=== PATIENT | female | born 1945 | race Caucasian/White ===

== ENCOUNTER 2020-07-17 12:10 | Inpatient (IN) | payer OTHER ==
[2020-07-17] MEDS ORDERED: ONDANSETRON 4 MG/2 ML VIAL ONE (13:01)
[2020-07-17] MEDS ORDERED: MORPHINE 4 MG/ML SYR ONE ×3 (13:01→15:20)
--- NOTE | 2020-07-17 13:31 | RAD REPORT ---
EXAM DESCRIPTION: RAD - Hip Left 2 View - 07/17/2020 1:23 pm CLINICAL HISTORY: PAIN COMPARISON: <Comparisons> FINDINGS: Intratrochanteric fracture is seen of the proximal left femur. No dislocation evident.
--- NOTE | 2020-07-17 13:44 | RAD REPORT ---
EXAM DESCRIPTION: RAD - Chest Single View - 07/17/2020 1:28 pm CLINICAL HISTORY: CONGESTION Chest pain. COMPARISON: Hip Left 2 View dated 07/17/2020 FINDINGS: Portable technique limits examination quality. The lungs are grossly clear. The heart is normal in size. Old left clavicular trauma.Cervical hardwar e plate. IMPRESSION: No acute intrathoracic process suspected.
[2020-07-17 14:04] LABS: Absolute Lymphocytes (CBC) 1.7 K/uL (0.7-4.9); Basophils % 0.7 % (0-1.3); Hematocrit 40.3 % (36.0-45.0); Lymphocytes % 20.1 % (15.3-44.8); MPV 9.3 fL (7.6-11.3); RBC Red Blood Cell Count 4.28 M/uL (3.86-4.86)
[2020-07-17 14:10] LABS: Protime INR 1.02
--- NOTE | 2020-07-17 14:24 | EDPHYS ---
Physician Documentation [facility] Name: Zaid Travis Age: 75 yrs Sex: Female : 1945 Arrival Date: 07/17/2020 Time: 12:10 Bed 7 Private MD: ED Physician Janet Schwartz HPI: 07/17 14:20 This 75 yrs old Female presents to ER via EMS with complaints of Fall Injury. ma2 14:20 Details of fall: The patient fell from an upright position. Onset: The symptoms/episode ma2 began/occurred suddenly, 3 hour(s) ago. Severity of symptoms: At their worst the symptoms were. The patient has experienced similar episodes in the past. Historical: - Allergies: 12:15 Codeine; itching; hb - Home Meds: 12:15 gabapentin oral oral [Active]; Lexapro Oral [Active]; hb - PMHx: 12:15 Bipolar disorder; hb - Immunization history:: Adult Immunizations up to date. - Social history:: Smoking status: Patient reports the use of cigarette tobacco products, smokes one-half pack cigarettes per day. - Immunization history: Last tetanus immunization: < 5 years ago. - Family history:: not pertinent. ROS: 14:20 Constitutional: Negative for fever, chills, and weight loss. ma2 14:20 All other systems are negative. Exam: 14:20 Constitutional: This is a well developed, well nourished patient who is awake, alert, ma2 and in no acute distress. Chest/axilla: Normal chest wall appearance and motion. Nontender with no deformity. No lesions are appreciated. Cardiovascular: Regular rate and rhythm with a normal S1 and S2. No gallops, murmurs, or rubs. Normal PMI, no JVD. No pulse deficits. Respiratory: Lungs have equal breath sounds bilaterally, clear to auscultation and percussion. No rales, rhonchi or wheezes noted. No increased work of breathing, no retractions or nasal flaring. Abdomen/GI: Soft, non-tender, with normal bowel sounds. No distension or tympany. No guarding or rebound. No evidence of tenderness throughout. Skin: Warm, dry with normal turgor. Normal color with no rashes, no lesions, and no evidence of cellulitis. MS/ Extremity: Pulses equal, no cyanosis. Neurovascular intact. Full, normal range of motionleft. left hip ttp Neuro: Awake and alert, GCS 15, oriented to person, place, time, and situation. Cranial nerves II-XII grossly intact. Motor strength 5/5 in all extremities. Sensory grossly intact. Cerebellar exam normal. Normal gait. Vital Signs: 12:13 BP 170 / 86; Pulse 81; Resp 16; Temp 98.3; Pulse Ox 95% on R/A; Weight 54.43 kg; Height hb 5 ft. 7 in. (170.18 cm); Pain 9/10; 13:04 BP 151 / 64; Pulse 63; Resp 16; Pulse Ox 94% on R/A; Pain 9/10; hb 14:00 BP 155 / 76; Pulse 66; Resp 20; Pulse Ox 94% on R/A; kg 15:00 BP 151 / 64; Pulse 73; Resp 18; Pulse Ox 94% on R/A; kg 16:43 BP 135 / 96; Pulse 68; Resp 18; Pulse Ox 94% ; kg 12:13 Body Mass Index 18.79 (54.43 kg, 170.18 cm) hb Solo Coma Score: 12:08 Eye Response: spontaneous(4). Verbal Response: oriented(5). Motor Response: obeys hb commands(6). Total: 15. Trauma Score (Adult): 12:08 Eye Response: spontaneous(1); Verbal Response: oriented(1); Motor Response: obeys hb commands(2); Systolic BP: > 89 mm Hg(4); Respiratory Rate: 10 to 29 per min(4); Solo Score: 15; Trauma Score: 12 13:04 Eye Response: spontaneous(1); Verbal Response: oriented(1); Motor Response: obeys hb commands(2); Systolic BP: > 89 mm Hg(4); Respiratory Rate: 10 to 29 per min(4); [place] Score: 15; Trauma Score: 12 MDM: 12:13 Patient medically screened. ma2 14:20 Differential diagnosis: abrasion, fracture, sprain, strain. Data reviewed: vital signs, ma2 nurses notes. Counseling: I had a detailed discussion with the patient and/or guardian regarding: the historical points, exam findings, and any diagnostic results supporting the discharge/admit diagnosis, the presence of at least one elevated blood pressure reading (>120/80) during this emergency department visit, the need for outpatient follow up. Response to treatment: the patient's symptoms have markedly improved after treatment. 07/17 13:38 Order name: Basic Metabolic Panel in2 07/17 13:38 Order name: CBC with Diff in2 07/17 13:38 Order name: LFT's in2 07/17 13:38 Order name: Magnesium in2 07/17 13:38 Order name: NT PRO-BNP in2 07/17 13:38 Order name: PT-INR in2 07/17 13:38 Order name: Troponin (emerg Dept Use Only) in2 07/17 13:38 Order name: Basic Metabolic Panel EDMS 07/17 13:38 Order name: CBC with Automated Diff EDTN 07/17 13:38 Order name: Liver (Hepatic) Function EDMS 07/17 13:38 Order name: Magnesium EDMS 07/17 13:38 Order name: NT PRO-BNP EDMS 07/17 13:38 Order name: Protime (+INR) EDMS 07/17 13:39 Order name: Troponin (Emerg Dept Use Only) EDMS 07/17 12:47 Order name: Hip Left 2 View XRAY; Complete Time: 13:34 in2 07/17 13:24 Order name: Chest Single View XRAY in2 07/17 13:38 Order name: EKG; Complete Time: 13:39 in2 07/17 14:42 Order name: SARS-COV-2 RT PCR EDTN 07/17 14:56 Order name: Lipase hb 07/17 14:58 Order name: UA hb 07/17 14:58 Order name: Urine Drug Screen hb 07/17 14:58 Order name: Urinalysis EDTN 07/17 14:58 Order name: Urine Drug Screen EDTN 07/17 15:16 Order name: Abdomen EDTN 07/17 15:22 Order name: Urine Microscopic Only EDTN 07/17 13:38 Order name: Cardiac monitoring [facility] 07/17 13:38 Order name: EKG - Nurse/Tech [facility] 07/17 13:38 Order name: IV Saline Lock in2 07/17 13:38 Order name: Labs collected and sent [facility] 07/17 13:38 Order name: O2 Per Protocol [facility] 05/02 13:38 Order name: O2 Sat Monitoring in2 07/17 15:20 Order name: CONS Physician Consult EDMS Administered Medications: 12:47 Drug: morphine 4 mg Route: IVP; Site: left antecubital; kg 14:39 Follow up: Response: No adverse reaction; Pain is unchanged, physician notified kg 12:47 Drug: Zofran (Ondansetron) 4 mg Route: IVP; Site: left antecubital; kg 14:40 Follow up: Response: No adverse reaction; Pain is unchanged, physician notified kg 14:00 Drug: morphine 4 mg Route: IVP; Site: left antecubital; kg 14:40 Follow up: Response: No adverse reaction; Pain is unchanged, physician notified kg 15:06 Drug: morphine 4 mg Route: IVP; Site: left antecubital; kg 15:38 Follow up: Response: No adverse reaction; Pain is unchanged, physician notified kg Disposition: 07/17/20 14:24 Hospitalization ordered by Scott Rodriguez for Inpatient Admission. Preliminary diagnosis is Intertrochanteric fracture of femur - left. - Bed requested for Telemetry/MedSurg (Inpatient). - Status is Inpatient Admission. hb - Condition is Stable. - Problem is new. - Symptoms are unchanged. Signatures: Dispatcher [employer] EDMS Giselle Abernathy RN RN Janet Schwartz MD MD in2 Neva Rees Giselle Mckeon kg Corrections: (The following items were deleted from the chart) 14:00 13:40 CORONAVIRUS+MR.LAB.BRZ ordered. EDTN EDMS 16:39 14:24 Hospitalization Ordered by Scott Rodriguez MD for Inpatient Admission. Preliminary eb diagnosis is Intertrochanteric fracture of femur - left. Bed requested for Telemetry/MedSurg (Inpatient). Status is Inpatient Admission. Condition is Stable. Problem is new. Symptoms are unchanged. in2 17:18 16:39 07/17/2020 14:24 Hospitalization Ordered by Scott Rodriguez MD for Inpatient hb Admission. Preliminary diagnosis is Intertrochanteric fracture of femur - left. Bed requested for Telemetry/MedSurg (Inpatient). Status is Inpatient Admission. Condition is Stable. Problem is new. Symptoms are unchanged. eb
--- NOTE | 2020-07-17 14:24 | ER ---
Nurse's Notes [facility] Name: Zaid Travis Age: 75 yrs Sex: Female : 1945 Arrival Date: 07/17/2020 Time: 12:10 Bed 7 Private MD: Diagnosis: Intertrochanteric fracture of femur-left Presentation: 07/17 12:06 Trauma event details: Injury occurred in the [facility], Injury occurred: at home. Injury occurred: July 17, 2020. 12:10 Chief complaint: EMS states: Was ambulating with walker down the road, got angry, threw hb the walker, and fell onto left side. Left leg shortened and externally rotated, c/o left hip pain 10. Fentanyl 100 mcg administered to 20g RAC. Care prior to arrival: None. Mechanism of Injury: Fall from standing position. 12:10 Acuity: SANJAY 2 hb 12:10 Method Of Arrival: EMS: [facility] 12:13 Coronavirus screen: At this time, the client does not indicate any symptoms associated hb with coronavirus-19. Ebola Screen: No symptoms or risks identified at this time. Initial Sepsis Screen: Does the patient meet any 2 criteria? No. Patient's initial sepsis screen is negative. Does the patient have a suspected source of infection? No. Patient's initial sepsis screen is negative. Risk Assessment: Do you want to hurt yourself or someone else? Patient reports no desire to harm self or others. Onset of symptoms was July 17, 2020. Trauma Activation: Alert Physician: ED Physician; Name: ; Notified At: ; Arrived At: Physician: General Surgeon; Name: ; Notified At: ; Arrived At: Physician: Radiology; Name: ; Notified At: ; Arrived At: Physician: Respiratory; Name: ; Notified At: ; Arrived At: Physician: Lab; Name: ; Notified At: ; Arrived At: Historical: - Allergies: 12:15 Codeine; itching; hb - Home Meds: 12:15 gabapentin oral oral [Active]; Lexapro Oral [Active]; hb - PMHx: 12:15 Bipolar disorder; hb - Immunization history:: Adult Immunizations up to date. - Social history:: Smoking status: Patient reports the use of cigarette tobacco products, smokes one-half pack cigarettes per day. - Immunization history: Last tetanus immunization: < 5 years ago. - Family history:: not pertinent. Screenin:15 Abuse screen: Denies threats or abuse. Denies injuries from another. Nutritional hb screening: No deficits noted. Tuberculosis screening: No symptoms or risk factors identified. Fall Risk Total Zhu Fall Scale indicates High Risk Score (45 or more points). Fall prevention measures have been instituted. Side Rails Up X 2 Frequent Obs/Assessments Occuring As available patient and family educated on Fall Prevention Program and Strategies. Primary Survey: 12:08 NO uncontrolled hemorrhage observed. A: The patient is alert. Airway: patent. hb Breathing/Chest: Respiratory pattern: regular, Respiratory effort: spontaneous, unlabored, Chest inspection: symmetrical rise and fall of the chest. Circulation: Skin color: pink, Skin temperature: warm, dry. Disability Alert. Exposure/Environment: All clothing and personal items were removed. There is no evidence of uncontrolled external bleeding. Obvious injury(ies) are noted at this time: left hip pain A warming method has been applied: A warm blanket has been provided to the patient. 13:03 Reassessment Airway Oxygen No O2 Breathing/Chest Respiratory pattern Regular hb Respiratory effort Spontaneous Unlabored Chest inspection Symmetrical Circulation Color [place] Temperature Warm Dry Disability Alert. Secondary Survey: 12:08 HEENT: No deficits noted. Gastrointestinal: No deficits noted. : No deficits noted. hb No signs and/or symptoms were reported regarding the genitourinary system. Musculoskeletal: Reports left hip pain, left leg shortened and externally rotated. Assessment: 12:17 General: Appears in no apparent distress. uncomfortable, Behavior is cooperative, hb agitated, anxious. Pain: Pain currently is 9 out of 10 on a pain scale. Neuro: Level of Consciousness is awake, alert, obeys commands, Oriented to person, place, time, situation. Cardiovascular: Capillary refill < 3 seconds Patient's skin is warm and dry. Respiratory: Respiratory effort is even, unlabored, Respiratory pattern is regular, symmetrical. GI: No deficits noted. No signs and/or symptoms were reported involving the gastrointestinal system. : No deficits noted. No signs and/or symptoms were reported regarding the genitourinary system. EENT: No deficits noted. No signs and/or symptoms were reported regarding the EENT system. Derm: Skin is pink, warm \T\ dry. Musculoskeletal: Reports left hip pain. 13:04 Reassessment: Patient appears in no apparent distress at this time. Patient and/or hb family updated on plan of care and expected duration. Pain level reassessed. Patient is alert, oriented x 3, equal unlabored respirations, skin warm/dry/pink. 16:49 Reassessment: Tried to call report to Med surg, nurse is busy will retry in 10 mins.. kg Vital Signs: 12:13 BP 170 / 86; Pulse 81; Resp 16; Temp 98.3; Pulse Ox 95% on R/A; Weight 54.43 kg; Height hb 5 ft. 7 in. (170.18 cm); Pain 9/10; 13:04 BP 151 / 64; Pulse 63; Resp 16; Pulse Ox 94% on R/A; Pain 9/10; hb 14:00 BP 155 / 76; Pulse 66; Resp 20; Pulse Ox 94% on R/A; kg 15:00 BP 151 / 64; Pulse 73; Resp 18; Pulse Ox 94% on R/A; kg 16:43 BP 135 / 96; Pulse 68; Resp 18; Pulse Ox 94% ; kg 12:13 Body Mass Index 18.79 (54.43 kg, 170.18 cm) hb Solo Coma Score: 12:08 Eye Response: spontaneous(4). Verbal Response: oriented(5). Motor Response: obeys hb commands(6). Total: 15. Trauma Score (Adult): 12:08 Eye Response: spontaneous(1); Verbal Response: oriented(1); Motor Response: obeys hb commands(2); Systolic BP: > 89 mm Hg(4); Respiratory Rate: 10 to 29 per min(4); [place] Score: 15; Trauma Score: 12 13:04 Eye Response: spontaneous(1); Verbal Response: oriented(1); Motor Response: obeys hb commands(2); Systolic BP: > 89 mm Hg(4); Respiratory Rate: 10 to 29 per min(4); [place] Score: 15; Trauma Score: 12 ED Course: 12:10 Patient arrived in ED. hb 12:12 Janet Schwartz MD is Attending Physician. ma2 12:13 Triage completed. hb 12:15 Arm band placed on. hb 12:15 Patient has correct armband on for positive identification. Placed in gown. Bed in low hb position. Call light in reach. Side rails up X2. 12:20 Patient maintains SpO2 saturation greater than 95% on room air. Thermoregulation: warm hb blanket given to patient. 12:24 Giselle Mckeon is Primary Nurse. kg 12:24 Maintain EMS IV. Dressing intact. Good blood return noted. Site clean \T\ dry. Gauge \T\ kg site: 20 G left A/C. Villaseñor cath inserted, using sterile technique, 16 Fr.. 13:23 Hip Left 2 View XRAY In Process Unspecified. EDMS 13:28 Chest Single View XRAY In Process Unspecified. EDMS 14:23 Scott Rodriguez MD is Hospitalizing Provider. ma2 15:05 Urine Drug Screen Sent. kg 15:05 UA Sent. kg 16:59 Report given to Report called to Eliza JAYcertified surgical technician. kg Administered Medications: 12:47 Drug: morphine 4 mg Route: IVP; Site: left antecubital; kg 14:39 Follow up: Response: No adverse reaction; Pain is unchanged, physician notified kg 12:47 Drug: Zofran (Ondansetron) 4 mg Route: IVP; Site: left antecubital; kg 14:40 Follow up: Response: No adverse reaction; Pain is unchanged, physician notified kg 14:00 Drug: morphine 4 mg Route: IVP; Site: left antecubital; kg 14:40 Follow up: Response: No adverse reaction; Pain is unchanged, physician notified kg 15:06 Drug: morphine 4 mg Route: IVP; Site: left antecubital; kg 15:38 Follow up: Response: No adverse reaction; Pain is unchanged, physician notified kg Intake: 12:08 PO: 0ml; Total: 0ml. hb Outcome: 14:24 Decision to Hospitalize by Provider. ma2 17:18 Patient left the ED. hb Signatures: Dispatcher [employer] EDGiselle Kimbrough RN RN hb Alzahri, Mohammad, MD MD maGiselle Rock kg
[2020-07-17 14:25] LABS: ALT/SGPT 12 U/L (12-78); AST/SGOT 14 U/L (15-37); Albumin 3.5 g/dL (3.4-5.0); Alkaline Phosphatase 72 U/L (45-117); BUN Blood Urea Nitrogen 18 mg/dL (7-18); Bicarbonate 26 mmol/L (21-32); Bilirubin Direct < 0.1 mg/dL (0-0.2); Bilirubin Total 0.2 mg/dL (0.2-1.0); Glucose Level 88 mg/dL (74-106); Magnesium 2.1 mg/dL (1.8-2.4); NT PRO-BNP 181 pg/mL (<125); Potassium 3.4 mmol/L (3.5-5.1); Protein, Total 6.9 g/dL (6.4-8.2); Sodium Level 145 mmol/L (136-145); Troponin (Emerg Dept Use Only) < 0.02 ng/mL (0.0-0.045)
[2020-07-17 15:09] LABS: Urine Appearance CLEAR (Clear); Urine Bilirubin NEGATIVE (Negataive); Urine Blood TRACE (Negative); Urine Color YELLOW (Yellow); Urine Glucose NEGATIVE (Negative); Urine Protein 1+ (Negative); Urine Specific Gravity 1.025 (1.005-1.030); Urine Urobilinogen 0.2 mg/dL (0.2-1.0)
[2020-07-17 15:18] LABS: Barbiturates NEGATIVE (NEGATIVE); Benzodiazepines NEGATIVE (NEGATIVE); Cocaine NEGATIVE (NEGATIVE); METHAMPHETAM NEGATIVE (NEGATIVE); Methadone NEGATIVE (NEGATIVE); Opiates NEGATIVE (NEGATIVE); Phencyclidine NEGATIVE (NEGATIVE); THC Cannibis NEGATIVE (NEGATIVE)
[2020-07-17 15:22] LABS: Urine Microscopic Reflex ORDER UMIC
--- NOTE | 2020-07-17 15:24 | P.HP ---
Certification for Inpatient Patient admitted to: Inpatient With expected LOS: >2 Midnights Practitioner: I am a practitioner with admitting privileges, knowledge of patient current condition, hospital course, and medical plan of care. Services: Services provided to patient in accordance with Admission requirements found in Title 42 Section 412.3 of the Code of Federal Regulations Patient History Date of Service: 07/17/20 Reason for admission: Left intratrochanteric fracture History of Present Illness: 75-year-old female, PMH: Neuropathy, anxiety, recent diagnosis of "ulcers blocking my pancreas". Presents to ED after a mechanical fall while walking alongside the road. The patient was using her walker when she was trying to the shakes and been off of it. She then fell to the floor landing on her left side and had severe pain. She denies loss of consciousness, denies hitting her head. In the ED, she was found to have a left intertrochanteric fracture. ED physician discussed the case with orthopedic surgery who recommended admission. Lab work was otherwise unremarkable. Patient reports he has been having nausea, vomiting, and epigastric abdominal pain over the last 2 days. Denies fever/diarrhea. Patient states he was recently admitted to the hospital in [place] for nausea/vomiting/abdominal pain. She states at that time they told her she had Ulcers blocking my pancreas, and that she Needed to have it cut out. Unfortunately patient's brother was dying at that time, and patient signed herself out AMA. She states she has been having worsening symptoms since that time. She also reports some vomiting small amounts of blood ~ 2 weeks ago. No recent bloody emesis in the last few days. Home medications list reviewed: Yes - Past Medical/Surgical History -: Anxiety -: Neuropathy -: "ulcers blocking pancreas" -: Cholecystectomy - Family History Family History: Reviewed- Non-Contributory (Patient is unaware of family history) - Social History Smoking Status: Current every day smoker (30pk/yr) Counseled patient to stop smoking for: less than 10 minutes Alcohol use: No Place of Residence: Home (with granddaughter) Review of Systems 10-point ROS is otherwise unremarkable Physical Examination - Studies Laboratory Data (last 24 hrs) 07/17/20 13:46: Lipase 104 07/17/20 13:46: PT 11.7, INR 1.02 07/17/20 13:46: WBC 8.30, Hgb 13.4, Hct 40.3, Plt Count 237 07/17/20 13:46: Sodium 145, Potassium 3.4 L, BUN 18, Creatinine 0.64, Glucose 88, Magnesium 2.1, Total Bilirubin 0.2, AST 14 L, ALT 12, Alkaline Phosphatase 72 Assessment and Plan - Advance Directives Does patient have a Living Will: No Does patient have a Durable POA for Healthcare: No Physician Review Additional Text: Physical exam General: Intermittent distress due to left hip pain HEENT: Normal conjunctiva, sclerae anicteric, PERRL CV: RRR, no murmur/rub/gallop Pulm: CTAB, no wheeze/rales/rhonchi Abd: soft, slight guarding, TTP in epigastrium and LUQ Ext: pain at L hip with minimal ROM, str otherwise intact, sensation intact with noted decreased sensation on b/l feet neuro: CN II-XII grossly intact Problem List Left intertrochanteric fracture Neuropathy Anxiety nausea/vomiting/epigastric pain "ulcers blocking pancreas" -admit to med/surg -ortho consulted for fracture -labs WNL, obtain lipase, urine tox, UA -CT abd/pelvis ordered to eval pancreas / other causes of symptoms -CLD for now, IVF, NPO after midnight -unclear what ulcers blocking pancreas means, ?GERD, but she does report some hematemesis in the last month -Hgb is 13, so do not suspect large bleed recently, would be issue since will need anticoagulation post-op -obtain home meds, restart as appropriate -will need PT/OT, SW consult post-surgery, pt unsure if home vs SNF -was walking with walker due to balance issues from her neuropathy VTE: SCDs for now Code: full Dispo: anticipate dc in ~2 days, SNF vs home - pt unsure at this time Time Spent Managing Pts Care (In Minutes): 60
[2020-07-17 15:36] LABS: Urine Bacteria <20 /HPF (<20)
--- NOTE | 2020-07-17 16:11 | RAD REPORT ---
EXAM DESCRIPTION: CTAbdomen Pelvis W Contrast - 07/17/2020 3:47 pm CLINICAL HISTORY: Abdominal pain. epigastric pain, recent Dx: "pancreas blockage" COMPARISON: No comparisons TECHNIQUE: Biphasic CT imaging of the abdomen and pelvis was performed with 100 ml non-ionic IV cont rast. All CT scans are performed using dose optimization technique as appropriate and may include automated exposure control or mA/KV adjustment according to patient size. FINDINGS: The lung bases are clear.Small hiatal hernia. Benign appearing cyst is present in the left lobe of the liver. No aggressive liver lesion. Cholecyst ectomy. Mild prominence of the intrahepatic biliary tree is well as the pancreatic duct is seen. The spleen, adrenal glands are normal. Bilateral renal cysts are present. No hydronephrosis. No bowel obstruction, free air, free fluid or abscess. Moderate stool is retained throughout the colo n. The appendix is normal. No evidence of significant lymphadenopathy. Moderate lumbar degenerative changes. IMPRESSION: Mild intrahepatic and pancreatic ductal dilatation is seen status post cholecystectomy. This may be related to reservoir effect from the cholecystectomy, however followup MRCP may be useful for further assessment.
[2020-07-17 17:41] VITALS: BMI 21.4
[2020-07-17] MEDS: HYDROCODONE/APAP 5/325 MG TAB PO PRN (18:04)
[2020-07-17] MEDS: NA CHLORIDE 0.9% 1,000 ML IV SCH (18:07)
[2020-07-17 19:21] LABS: Thyroid Stimulating Hormone 4.58 uIU/mL (0.360-3.740)
[2020-07-17] MEDS: MORPHINE 4 MG/ML SYR IV PRN (20:55)
[2020-07-17] MEDS ORDERED: POTASSIUM 25 MEQ EFFERV TAB PO ONE (21:00)
--- NOTE | 2020-07-17 21:43 | RAD REPORT ---
EXAM DESCRIPTION: US - Abdomen Exam Limited - 07/17/2020 9:22 pm CLINICAL HISTORY: RUQ eval liver Abdominal pain COMPARISON: No comparisons FINDINGS: The gallbladder is absent. The common bile duct is mildly enlarged measuring 10 mm. The liver demonstrates [id number] intrahepatic biliary tree dilatation. Small benign liver cyst is noted. IMPRESSION: [id number] common bile duct intrahepatic biliary tree dilatation noted status post cholecystectomy
[2020-07-17] MEDS: ONDANSETRON 4 MG/2 ML VIAL IV PRN (21:56)
[2020-07-18] MEDS: MORPHINE 4 MG/ML SYR IV PRN ×3 (02:52→18:12)
[2020-07-18] MEDS: NA CHLORIDE 0.9% 1,000 ML IV SCH ×3 (02:53→23:41)
[2020-07-18] MEDS: HYDROCODONE/APAP 5/325 MG TAB PO PRN ×2 (05:42→20:47)
[2020-07-18 06:26] LABS: ALT/SGPT 90 U/L (12-78); AST/SGOT 115 U/L (15-37); Albumin 3.5 g/dL (3.4-5.0); Alkaline Phosphatase 111 U/L (45-117); BUN Blood Urea Nitrogen 11 mg/dL (7-18); Bicarbonate 29 mmol/L (21-32); Bilirubin Total 0.6 mg/dL (0.2-1.0); Glucose Level 92 mg/dL (74-106); Lipase 811 U/L (73-393); Magnesium 2.2 mg/dL (1.8-2.4); Phosphorus 2.2 mg/dL (2.5-4.9); Potassium 4.6 mmol/L (3.5-5.1); Protein, Total 6.9 g/dL (6.4-8.2); Sodium Level 144 mmol/L (136-145)
[2020-07-18 06:29] LABS: Absolute Lymphocytes (CBC) 2.1 K/uL (0.7-4.9); Basophils % 0.6 % (0-1.3); Hematocrit 38.5 % (36.0-45.0); Lymphocytes % 25.4 % (15.3-44.8); MPV 8.8 fL (7.6-11.3)
[2020-07-18] MEDS ORDERED: PNEUMOCOCCAL VACCINE 0.5 ML IMVAC ONE (08:00)
[2020-07-18] MEDS ORDERED: TRANEXAMIC ACID 1,000 MG in NA CHLORIDE 0.9% 50 ML IV SCH (10:00)
[2020-07-18] MEDS: ONDANSETRON 4 MG/2 ML VIAL IV PRN ×2 (10:41→18:13)
[2020-07-18] MEDS ORDERED: MIDAZOLAM HCL 2 MG/2 ML INJ ONE (11:40)
[2020-07-18] MEDS ORDERED: propofoL 200 MG/20 ML VIAL IV ONE (11:40)
[2020-07-18] MEDS ORDERED: FENTANYL CITR 100 MCG/2 ML ONE (11:40)
[2020-07-18] MEDS ORDERED: LIDOCAINE 2% MPF 5 ML VIAL ONE (11:40)
[2020-07-18] MEDS ORDERED: CEFAZOLIN SODIUM 1 GM/VIAL ONE ×2 (11:49)
[2020-07-18] MEDS ORDERED: EPHEDRINE SULF 50 MG/ML VIAL ONE (12:11)
--- NOTE | 2020-07-18 12:44 | P.BOP ---
Preoperative diagnosis: left it fracture Postoperative diagnosis: same Primary procedure: left hip SURAJ fixation Estimated blood loss: 100ccs Anesthesia: General Complications: None Transferred to: Recovery Room Condition: Good
[2020-07-18] MEDS ORDERED: NA CHLORIDE 0.9% 1,000 ML ONE (12:46)
[2020-07-18] MEDS ORDERED: ALBUTEROL 2.5 MG/3 ML NEB SOL ONE (13:15)
[2020-07-18] MEDS: MORPHINE 4 MG/ML SYR ONE ×2 (13:15→13:32)
--- NOTE | 2020-07-18 13:17 | P.PN ---
Subjective Date of Service: 07/18/20 Chief Complaint: Left intratrochanteric fracture Subjective: No new changes (continues with pain in L hip/leg, mild nausea, no emesis, still with epigastric pain) Review of Systems 10-point ROS is otherwise unremarkable Physical Examination - Vital Signs Temperature: 97.4 F Blood Pressure: 142/74 Pulse: 88 Respirations: 22 Pulse Ox (%): 96 - Studies Laboratory Data (last 24 hrs) 07/17/20 13:46: Lipase 104 07/17/20 13:46: PT 11.7, INR 1.02 07/17/20 13:46: WBC 8.30, Hgb 13.4, Hct 40.3, Plt Count 237 07/17/20 13:46: Sodium 145, Potassium 3.4 L, BUN 18, Creatinine 0.64, Glucose 88, Magnesium 2.1, Total Bilirubin 0.2, AST 14 L, ALT 12, Alkaline Phosphatase 72 Assessment & Plan Physician Review Additional Text: Physical exam General: NAD HEENT: Normal conjunctiva, sclerae anicteric, PERRL CV: RRR, no murmur/rub/gallop Pulm: CTAB, no wheeze/rales/rhonchi Abd: soft, TTP in epigastrium and LUQ Ext: pain at L hip with minimal ROM, str otherwise intact, sensation intact with noted decreased sensation on b/l feet Problem List Left intertrochanteric fracture Neuropathy Anxiety nausea/vomiting/epigastric pain "ulcers blocking pancreas" -ortho consulted for fracture - to go to OR today -labs pending this morning -RUQ U/S: dilated CBD -CT abd/pelvis: Mild intrahepatic and pancreatic ductal dilatation, recommended MRCP follow up - may be due to cholecystectomy -NPO, IVF for surgery -MRCP ordered, pt in significant pain, unlikely to tolerated but will try, obtain post-op if needed -unclear what ulcers blocking pancreas means, ?GERD, but she does report some hematemesis in the last month -Hgb is 13, so do not suspect large bleed recently, would be issue since will need anticoagulation post-op -obtain home meds, restart as appropriate -was walking with walker due to balance issues from her neuropathy VTE: SCDs for now, likely lovenox tomorrow Code: full Dispo: anticipate dc in ~2-3 days, SNF vs home - pt still unsure at this time Time Spent Managing Pts Care (In Minutes): 35
[2020-07-18] MEDS ORDERED: ONDANSETRON 4 MG/2 ML VIAL ONE (13:30)
[2020-07-18] MEDS ORDERED: PROMETHAZINE INJ 25 MG/ML AMP ONE (13:33)
[2020-07-18] MEDS ORDERED: MEPERIDINE HCL 25 MG/ML SYR ONE (13:40)
--- NOTE | 2020-07-18 14:01 | RAD REPORT ---
EXAM DESCRIPTION: RAD - Hip In Or - 07/18/2020 1:52 pm FINDINGS: There were 7 portable C-arm views submitted from a fluoroscopic assisted placement of frac ture fixation hardware. No suspicious or unexpected findings. Fluoro time was 0.9 minutes. Cumulative dose was 6.85 mGy.
[2020-07-18] MEDS ORDERED: MORPHINE 2 MG/ML SYR IV ONE (15:00)
--- NOTE | 2020-07-18 20:29 | OP ---
Date of Procedure: 07/18/2020 Surgeon: Chris Macdonald MD Preoperative Diagnosis: Left intertrochanteric fracture. Postoperative Diagnosis: Left intertrochanteric fracture. Procedure: Left hip closed reduction with intramedullary kallie fixation using the [employer] Affix[employer] syste m. Estimated Blood Loss: 100 mL. Complications: There were no complications. Pathology Specimen: No pathology specimens sent. Indications For Operation: Ms. Travis is a 75-year-old female, who unfortunately injured her left lowe r extremity. She was seen and examined in my office where she was ruled out for other injuries; junito nunez, unfortunately, had significant pain and problems related to her left hip. All of the long bones and joints were palpated without pain or crepitation. Risks, benefits, and alternatives to differen t methods of treatment have been discussed with her. She states she understands things as presented and at this time, we will proceed with imaging fixation of her left hip. Procedure In Detail: The patient was taken to the operating room and placed in supine position. Gen eral anesthesia was obtained by staff. Following this, she was then transferred to the fracture tabl e where she was well positioned and C-arm was brought in to ensure 2 good views. The left hip was th en prepped and draped in the usual fashion for procedure. Following this, the greater trochanter was marked out. A vertical incision was made proximal to the greater trochanter. This was taken down c arefully through the skin and subcutaneous tissues. Meticulous hemostasis had been maintained using Bovie electrocautery. A finger was placed and the trochanter was easily palpated. The entry pin was then placed using the opening device and placed across the fracture site without any problems. This was followed by reaming proximally. A 9 x 125 nail was then placed over the pin without difficulty. The pin was removed and the cephalomedullary screws were then placed without difficulty with biplan ar C-arm radiography ensuring the correct placement. Following this, a standard inferior interlock s crew was then placed. The wounds were copiously irrigated and the skin was closed after closure of t he fascia and the patient was then placed in Aquacel dressing, awakened and taken to recovery room in good condition. SE/MODL Voice ID: [id number] Report ID: [id number]
[2020-07-19] MEDS: HYDROCODONE/APAP 5/325 MG TAB PO PRN ×2 (02:58→12:02)
[2020-07-19 03:56] LABS: Absolute Lymphocytes (CBC) 1.6 K/uL (0.7-4.9); Basophils % 0.6 % (0-1.3); Hematocrit 27.2 % (36.0-45.0); Lymphocytes % 17.4 % (15.3-44.8); MPV 8.7 fL (7.6-11.3); RBC Red Blood Cell Count 2.85 M/uL (3.86-4.86)
--- NOTE | 2020-07-19 04:09 | CON ---
Date of Consultation: 07/18/2020 History Of Present Illness: This is my first time seeing this patient to my knowledge. She is a 75- year-old female who unfortunately injured her left lower extremity. She was seen and examined in the emergency department where she was ruled out for other injuries, however, x-rays demonstrate a sligh tly displaced intertrochanteric fracture on the left. Physical Examination: All of her long bones and joints are palpated without pain or crepitation exception of her left hip w hich is painful with any movement or manipulation. Imaging: X-rays were reviewed, which demonstrate a minimally displaced complete left intertrochanter ic fracture. Assessment: A 75-year-old female, now with a left intertrochanteric fracture. Plan: For operative intervention, including closed reduction, intramedullary kallie fixation, hopefully to be done as soon as possible, probably today, although we have to speak with primary care as well as the OR. Risks, benefits, and alternatives of this procedure have been discussed with the patient. She states she understands things presented and wished to proceed. /CEFERINO Voice ID: [id number] Report ID: [id number]
[2020-07-19 04:12] LABS: ALT/SGPT 43 U/L (12-78); AST/SGOT 35 U/L (15-37); Albumin 2.5 g/dL (3.4-5.0); Alkaline Phosphatase 78 U/L (45-117); BUN Blood Urea Nitrogen 9 mg/dL (7-18); Bicarbonate 28 mmol/L (21-32); Bilirubin Total 0.5 mg/dL (0.2-1.0); Glucose Level 101 mg/dL (74-106); Lipase 162 U/L (73-393); Protein, Total 5.7 g/dL (6.4-8.2); Sodium Level 143 mmol/L (136-145)
[2020-07-19] MEDS: ONDANSETRON 4 MG/2 ML VIAL IV PRN ×4 (04:21→22:18)
[2020-07-19] MEDS: MORPHINE 4 MG/ML SYR IV PRN ×4 (04:29→22:17)
[2020-07-19] MEDS: ESCITALOPRAM 20 MG TAB PO SCH (09:23)
[2020-07-19] MEDS: NA CHLORIDE 0.9% 1,000 ML IV SCH ×2 (12:03→22:13)
--- NOTE | 2020-07-19 14:54 | P.PN ---
Subjective Date of Service: 07/19/20 Chief Complaint: Left intratrochanteric fracture Subjective: No new changes Patient seen and examined. complaining of pain to the left hip. Pain currently managed with current pain medication regimen. Continue supportive care l <Eileen Omer - Last Filed: 07/19/20 14:55> Date of Service: 07/19/20 <robby garrett - Last Filed: 07/19/20 17:29> Review of Systems General: Unremarkable Eyes: Unremarkable (The) ENT: Unremarkable Respiratory: Unremarkable Cardiovascular: Unremarkable Gastrointestinal: Unremarkable Genitourinary: Unremarkable Musculoskeletal: Leg Pain, Other (Pain to left hip) Integumentary: Unremarkable Neurological: Unremarkable Lymphatics: Unremarkable <Eileen Omer - Last Filed: 07/19/20 14:55> Physical Examination - Vital Signs Temperature: 99.1 F Blood Pressure: 136/80 Pulse: 98 Respirations: 18 Pulse Ox (%): 91 - Physical Exam General: Alert, In no apparent distress, Oriented x3 HEENT: Atraumatic, PERRLA, EOMI Neck: Supple, JVD not distended Respiratory: Clear to auscultation bilaterally, Normal air movement Cardiovascular: Regular rate/rhythm, Normal S1 S2 Capillary refill: <2 Seconds Gastrointestinal: Normal bowel sounds, No tenderness Musculoskeletal: No tenderness Integumentary: No rashes Neurological: Normal speech, Normal tone, Normal affect Lymphatics: No axilla or inguinal lymphadenopathy External genitalia: Deferred Rectal: Deferred <Eileen Omer - Last Filed: 07/19/20 14:55> Assessment And Plan - Plan --Left intertrochanteric fracture. S/P Left hip closed reduction with intramedullary kallie fixation. Orthopedic surgeon on board. PT on board. Patient had PT today. Continue supportive care --Acute pain. We will manage pain with current regimen. --Neuropathy. Continue gabapentin --Anxiety. Ativan prn --Nausea/vomiting. Antiemetic s on board --Thrombocytopenia. Unclear etiology. Continue supportive care. Will reassess platelets in AM. --Epigastric pain. CT abd/pelvis: Mild intrahepatic and pancreatic ductal dilatation. MRCP to be ordered when appropriate. Patient currently in pain with minimal movement. --DVT prophylaxis with SCDS. Chemical prophylaxis contraindicated at this time due to thrombocytopenia. Discharge Plan: Home Plan to discharge in: 48 Hours - Code Status/Comfort Care Code Status Assessed: Yes Code Status: Full Code <Eileen Omer - Last Filed: 07/19/20 14:55> Physician Review: Patient Assessed, Agree with Above Assessment and Plan Physician Review Additional Text: Patient complaining of left hip/thigh pain Dilated common bile duct likely secondary to post cholecystectomy. Acute blood loss anemia. Plan: Pain management as needed. Patient is tolerating PT. MRCP once pain is controlled. Monitor CBC to follow anemia and thrombocytopenia. Change from heparin based DVT prophylaxis the platelet count continue to drop further. Protonix for history of peptic ulcer and GERD. <robby garrett - Last Filed: 07/19/20 17:29>
[2020-07-19] MEDS: ENSURE ENLIVE 237 ML CAN PO SCH (21:00)
[2020-07-19] MEDS: GABAPENTIN 300 MG CAP PO SCH (22:14)
[2020-07-19] MEDS: LORAZEPAM 0.5 MG TABLET PO PRN (22:16)
[2020-07-20] MEDS: HEPARIN 5000 UNIT/ML 1 ML VIAL SQ SCH ×3 (01:00→16:21)
[2020-07-20 04:16] LABS: Basophils % 0.7 % (0-1.3); Hematocrit 24.6 % (36.0-45.0); Lymphocytes % 15.2 % (15.3-44.8); RBC Red Blood Cell Count 2.59 M/uL (3.86-4.86)
[2020-07-20 04:18] LABS: BUN Blood Urea Nitrogen 6 mg/dL (7-18); Bicarbonate 29 mmol/L (21-32); Glucose Level 92 mg/dL (74-106); Potassium 3.5 mmol/L (3.5-5.1); Sodium Level 144 mmol/L (136-145)
[2020-07-20 05:01] LABS: Blood Morphology Comment NOT SEEN (NOT SEEN); Platelet Estimate ADEQ
[2020-07-20] MEDS: ONDANSETRON 4 MG/2 ML VIAL IV PRN ×3 (05:41→20:17)
[2020-07-20] MEDS: NA CHLORIDE 0.9% 1,000 ML IV SCH ×2 (05:41→15:41)
[2020-07-20] MEDS: MORPHINE 4 MG/ML SYR IV PRN ×2 (05:41→15:05)
[2020-07-20] MEDS ORDERED: POTASSIUM 25 MEQ EFFERV TAB PO ONE (06:38)
[2020-07-20] MEDS: ESCITALOPRAM 20 MG TAB PO SCH (09:18)
[2020-07-20] MEDS: ENSURE ENLIVE 237 ML CAN PO SCH ×2 (09:18→20:23)
[2020-07-20] MEDS: GABAPENTIN 300 MG CAP PO SCH ×2 (09:18→20:16)
[2020-07-20] MEDS: PANTOPRAZOLE 40MG TABLET PO SCH ×2 (09:37→16:21)
[2020-07-20] MEDS: HYDROCODONE/APAP 5/325 MG TAB PO PRN ×2 (09:37→20:16)
--- NOTE | 2020-07-20 17:28 | P.PN ---
Subjective Date of Service: 07/20/20 Chief Complaint: Left intratrochanteric fracture Patient states her left thigh pain is better today. No fever. Hemoglobin dropped to 8 Physical Examination - Vital Signs Temperature: 98.8 F Blood Pressure: 122/61 Pulse: 94 Respirations: 18 Pulse Ox (%): 91 - Physical Exam General: Alert, In no apparent distress, Oriented x3 HEENT: Mucous membr. moist/pink Neck: JVD not distended Respiratory: Clear to auscultation bilaterally, Normal air movement Cardiovascular: No edema, Regular rate/rhythm, Normal S1 S2 Gastrointestinal: Normal bowel sounds, Soft and benign, Non-distended, No tenderness Integumentary: No rashes Neurological: Normal strength at 5/5 x4 extr Assessment And Plan - Current Problems (Diagnosis) (1) Closed left hip fracture Current Visit: Yes Status: Acute (2) S/P ORIF (open reduction internal fixation) fracture Current Visit: Yes Status: Acute (3) Common bile duct dilatation Current Visit: Yes Status: Acute (4) Acute blood loss anemia Current Visit: Yes Status: Acute (5) Epigastric pain Current Visit: Yes Status: Acute (6) Peripheral neuropathy Current Visit: Yes Status: Acute - Plan Status post ORIF Pain management per ortho Monitor H&H daily and transfuse for hemoglobin less than. Obtain MRCP for further evaluation the common bile duct in am. Continue gabapentin. Continue Protonix for GERD. Heparin subcu for DVT prophylaxis.
[2020-07-21] MEDS: HEPARIN 5000 UNIT/ML 1 ML VIAL SQ SCH ×3 (00:28→17:05)
[2020-07-21] MEDS: NA CHLORIDE 0.9% 1,000 ML IV SCH ×3 (00:35→23:45)
[2020-07-21] MEDS: MORPHINE 4 MG/ML SYR IV PRN ×4 (00:36→18:39)
[2020-07-21] MEDS: ONDANSETRON 4 MG/2 ML VIAL IV PRN ×4 (01:30→16:57)
[2020-07-21] MEDS: HYDROCODONE/APAP 5/325 MG TAB PO PRN ×2 (04:03→23:46)
[2020-07-21 04:04] LABS: Absolute Lymphocytes (CBC) 1.9 K/uL (0.7-4.9); Basophils % 1.2 % (0-1.3); Hematocrit 22.5 % (36.0-45.0); Lymphocytes % 31.7 % (15.3-44.8); MPV 8.8 fL (7.6-11.3); RBC Red Blood Cell Count 2.36 M/uL (3.86-4.86)
[2020-07-21] MEDS ORDERED: POTASSIUM CL SA 10 MEQ TAB PO ONE (06:20)
[2020-07-21] MEDS: ENSURE ENLIVE 237 ML CAN PO SCH ×2 (09:00→20:34)
[2020-07-21] MEDS: GABAPENTIN 300 MG CAP PO SCH ×2 (09:06→20:32)
[2020-07-21] MEDS: ESCITALOPRAM 20 MG TAB PO SCH (09:06)
[2020-07-21] MEDS: PANTOPRAZOLE 40MG TABLET PO SCH ×2 (09:07→17:06)
[2020-07-21 12:20] LABS: Hematocrit 23.3 % (36.0-45.0)
--- NOTE | 2020-07-21 14:24 | RAD REPORT ---
EXAM DESCRIPTION: MRICholangiogram07/21/2020 1:41 pm CLINICAL HISTORY: Abdominal pain COMPARISON: July 17, 2020 ultrasound and CAT scan TECHNIQUE: Magnetic resonance cholangiogram was performed.3D MIP reconstruction performed FINDINGS: Cholecystectomy. The common bile duct measures 10 millimeters. The common hepatic duct measures 14 millimeters. Mild t o moderate dilatation of the intrahepatic biliary tree. A filling defect within the biliary tree is not seen. No stricture visualized. Pancreatic duct is normal caliber IMPRESSION: Prominence of the biliary tree. This can be physiologic in this elderly patient status p ost cholecystectomy. No abnormality visualized to explain the dilatation. If clinical history and lab s support a duct obstruction ERCP would be recommended
--- NOTE | 2020-07-21 19:01 | P.PN ---
Subjective Date of Service: 07/21/20 Chief Complaint: Left intratrochanteric fracture Patient seen ambulating a walker during physical therapy. Hemoglobin dropped to 7.6. Patient denies any abdominal pain. Physical Examination - Vital Signs Temperature: 97.8 F Blood Pressure: 137/58 Pulse: 73 Respirations: 17 Pulse Ox (%): 97 - Physical Exam General: Alert, In no apparent distress, Oriented x3 HEENT: Mucous membr. moist/pink Neck: Supple, JVD not distended Respiratory: Clear to auscultation bilaterally, Normal air movement Cardiovascular: No edema, Regular rate/rhythm, Normal S1 S2 Gastrointestinal: Normal bowel sounds, Soft and benign, Non-distended, No tenderness Integumentary: No rashes Neurological: Normal strength at 5/5 x4 extr Assessment And Plan - Current Problems (Diagnosis) (1) Closed left hip fracture Current Visit: Yes Status: Acute (2) S/P ORIF (open reduction internal fixation) fracture Current Visit: Yes Status: Acute (3) Common bile duct dilatation Current Visit: Yes Status: Acute (4) Acute blood loss anemia Current Visit: Yes Status: Acute (5) Epigastric pain Current Visit: Yes Status: Acute (6) Peripheral neuropathy Current Visit: Yes Status: Acute - Plan Status post ORIF. Patient tolerating physical therapy. Pain management as needed Monitor H&H daily and transfuse for hemoglobin less than 7. MRCP shows dilated common bile duct which could be physiologic. No CBD stone identified. Continue gabapentin. Continue Protonix for GERD. Heparin subcu for DVT prophylaxis.
[2020-07-21] MEDS: LORAZEPAM 0.5 MG TABLET PO PRN (23:45)
[2020-07-22] MEDS: HEPARIN 5000 UNIT/ML 1 ML VIAL SQ SCH ×3 (00:58→16:09)
[2020-07-22] MEDS: ONDANSETRON 4 MG/2 ML VIAL IV PRN ×3 (01:45→16:10)
[2020-07-22 06:00] LABS: Absolute Lymphocytes (CBC) 1.7 K/uL (0.7-4.9); Basophils % 1.2 % (0-1.3); Hematocrit 22.5 % (36.0-45.0); Lymphocytes % 29.9 % (15.3-44.8); MPV 8.3 fL (7.6-11.3); RBC Red Blood Cell Count 2.38 M/uL (3.86-4.86)
[2020-07-22 06:16] LABS: BUN Blood Urea Nitrogen 6 mg/dL (7-18); Bicarbonate 32 mmol/L (21-32); Glucose Level 77 mg/dL (74-106); Potassium 3.6 mmol/L (3.5-5.1); Sodium Level 147 mmol/L (136-145)
[2020-07-22 06:30] LABS: Magnesium 2.1 mg/dL (1.8-2.4); Phosphorus 2.2 mg/dL (2.5-4.9)
[2020-07-22] MEDS ORDERED: POTASSIUM PHOS IN 0.9 % NACL 15 MMOL/250 ML BAG IV ONE (09:00)
[2020-07-22] MEDS ORDERED: POTASSIUM CL SA 10 MEQ TAB PO ONE (09:00)
[2020-07-22] MEDS: HYDROCODONE/APAP 5/325 MG TAB PO PRN ×3 (09:17→23:25)
[2020-07-22] MEDS: LORAZEPAM 0.5 MG TABLET PO PRN ×2 (09:18→18:40)
[2020-07-22] MEDS: PANTOPRAZOLE 40MG TABLET PO SCH ×2 (09:19→16:11)
[2020-07-22] MEDS: ESCITALOPRAM 20 MG TAB PO SCH (09:19)
[2020-07-22] MEDS: GABAPENTIN 300 MG CAP PO SCH ×2 (09:19→22:22)
[2020-07-22] MEDS: NA CHLORIDE 0.9% 1,000 ML IV SCH ×2 (09:22→23:25)
[2020-07-22] MEDS: ENSURE ENLIVE 237 ML CAN PO SCH ×2 (09:23→22:24)
[2020-07-22] MEDS ORDERED: NA CHLORIDE 0.9% 250 ML IV SCH (18:00)
--- NOTE | 2020-07-22 18:29 | P.PN ---
Subjective Date of Service: 07/22/20 Chief Complaint: Left intratrochanteric fracture Patient seen ambulating a walker during physical therapy. Hemoglobin remain a 7.5 Patient denies any abdominal pain. Physical Examination - Vital Signs Temperature: 98 F Blood Pressure: 154/71 Pulse: 91 Respirations: 18 Pulse Ox (%): 98 - Physical Exam General: Alert, In no apparent distress, Oriented x3 HEENT: Mucous membr. moist/pink Respiratory: Clear to auscultation bilaterally, Normal air movement Cardiovascular: No edema, Regular rate/rhythm, Normal S1 S2 Gastrointestinal: Soft and benign, Non-distended Musculoskeletal: No swelling Integumentary: No rashes Neurological: Normal strength at 5/5 x4 extr Assessment And Plan - Current Problems (Diagnosis) (1) Closed left hip fracture Current Visit: Yes Status: Acute (2) S/P ORIF (open reduction internal fixation) fracture Current Visit: Yes Status: Acute (3) Common bile duct dilatation Current Visit: Yes Status: Acute (4) Acute blood loss anemia Current Visit: Yes Status: Acute (5) Epigastric pain Current Visit: Yes Status: Acute (6) Peripheral neuropathy Current Visit: Yes Status: Acute - Plan Status post ORIF. Patient tolerating physical therapy. Patient prefers to go home rather SNF rehab. Pain management as needed Pacing with easy fatigability as noted during physical therapy. Hemoglobin is 7.5. Will transfuse 1 unit PRBC. MRCP shows dilated common bile duct which could be physiologic. No CBD stone identified. Normal pancreatic duct caliber. Continue gabapentin. Continue Protonix for GERD. Heparin subcu for DVT prophylaxis. Nicotine patch.
[2020-07-22] MEDS: MELATONIN 5 MG TABLET PO PRN (22:23)
[2020-07-22] MEDS: NICOTINE 21 MG/PAT TD SCH (22:23)
[2020-07-22] MEDS ORDERED: NA CHLORIDE 0.9% 250 ML ONE (23:43)
[2020-07-23] MEDS: HEPARIN 5000 UNIT/ML 1 ML VIAL SQ SCH ×2 (01:00→08:10)
[2020-07-23] MEDS: NA CHLORIDE 0.9% 1,000 ML IV SCH ×3 (03:41→23:51)
[2020-07-23 04:29] LABS: Absolute Lymphocytes (CBC) 1.7 K/uL (0.7-4.9); Hematocrit 28.6 % (36.0-45.0); Lymphocytes % 20.6 % (15.3-44.8); RBC Red Blood Cell Count 3.09 M/uL (3.86-4.86)
[2020-07-23] MEDS: HYDROCODONE/APAP 5/325 MG TAB PO PRN ×2 (05:14→21:23)
[2020-07-23] MEDS: LORAZEPAM 0.5 MG TABLET PO PRN ×2 (05:15→13:20)
[2020-07-23] MEDS: GABAPENTIN 300 MG CAP PO SCH ×2 (08:11→21:22)
[2020-07-23] MEDS: PANTOPRAZOLE 40MG TABLET PO SCH ×2 (08:11→16:43)
[2020-07-23] MEDS: NICOTINE 21 MG/PAT TD SCH (08:11)
[2020-07-23] MEDS: ENSURE ENLIVE 237 ML CAN PO SCH ×2 (08:12→21:00)
[2020-07-23] MEDS: ESCITALOPRAM 20 MG TAB PO SCH (08:12)
[2020-07-23] MEDS: ONDANSETRON 4 MG/2 ML VIAL IV PRN ×2 (12:02→21:23)
--- NOTE | 2020-07-23 15:25 | P.PN ---
Subjective Date of Service: 07/23/20 Chief Complaint: Left intratrochanteric fracture Patient is tolerating more physical therapy and was able to ambulate about 200 feet. Status post 1 unit PRBC transfusion. Hemoglobin is up to 9. Physical Examination - Vital Signs Temperature: 98.1 F Blood Pressure: 140/72 Pulse: 76 Respirations: 18 Pulse Ox (%): 97 - Physical Exam General: Alert, In no apparent distress Neck: JVD not distended Respiratory: Clear to auscultation bilaterally, Normal air movement Cardiovascular: No edema, Regular rate/rhythm, Normal S1 S2 Gastrointestinal: Soft and benign, Non-distended Musculoskeletal: No swelling Integumentary: No rashes Neurological: Normal strength at 5/5 x4 extr Assessment And Plan - Current Problems (Diagnosis) (1) Closed left hip fracture Current Visit: Yes Status: Acute (2) S/P ORIF (open reduction internal fixation) fracture Current Visit: Yes Status: Acute (3) Common bile duct dilatation Current Visit: Yes Status: Acute (4) Acute blood loss anemia Current Visit: Yes Status: Acute (5) Epigastric pain Current Visit: Yes Status: Acute (6) Peripheral neuropathy Current Visit: Yes Status: Acute - Plan Status post ORIF. Patient tolerating physical therapy. Patient prefers to go home rather SNF rehab. PT recommended inpatient rehab Pain management as needed Posttransfusion hemoglobin is stable at 9. MRCP shows dilated common bile duct which could be physiologic. No CBD stone identified. Normal pancreatic duct caliber. Continue gabapentin. Continue Protonix for GERD. Lovenox for DVT prophylaxis. Nicotine patch. PT reassessment on Saturday to see if she will qualify to go home. Physician Review: Patient Assessed, Agree with Above Assessment and Plan
[2020-07-23] MEDS: ENOXAPARIN 40 MG/0.4 ML SQ SCH (16:44)
[2020-07-23] MEDS: MELATONIN 5 MG TABLET PO PRN (21:23)
[2020-07-24] MEDS: LORAZEPAM 0.5 MG TABLET PO PRN ×3 (02:46→18:50)
[2020-07-24] MEDS: ONDANSETRON 4 MG/2 ML VIAL IV PRN ×2 (03:45→20:44)
[2020-07-24] MEDS: NICOTINE 21 MG/PAT TD SCH (09:10)
[2020-07-24] MEDS: GABAPENTIN 300 MG CAP PO SCH ×2 (09:11→20:38)
[2020-07-24] MEDS: ESCITALOPRAM 20 MG TAB PO SCH (09:11)
[2020-07-24] MEDS: HYDROCODONE/APAP 5/325 MG TAB PO PRN ×3 (09:11→23:57)
[2020-07-24] MEDS: PANTOPRAZOLE 40MG TABLET PO SCH ×2 (09:11→16:19)
[2020-07-24] MEDS: ENSURE ENLIVE 237 ML CAN PO SCH ×2 (09:13→20:38)
[2020-07-24] MEDS: NA CHLORIDE 0.9% 1,000 ML IV SCH (09:16)
--- NOTE | 2020-07-24 14:49 | P.PN ---
Subjective Date of Service: 07/24/20 Chief Complaint: Left intratrochanteric fracture Patient patient able to transfer without any effort. She requests to go home. She stated see just had the news her brother this morning and really needs to go home on discharge. Physical Examination - Vital Signs Temperature: 97.6 F Blood Pressure: 143/66 Pulse: 74 Respirations: 16 Pulse Ox (%): 98 - Physical Exam General: Alert, In no apparent distress Respiratory: Other (Nonlabored breathing.) Cardiovascular: No edema Integumentary: No rashes Assessment And Plan - Current Problems (Diagnosis) (1) Closed left hip fracture Current Visit: Yes Status: Acute (2) S/P ORIF (open reduction internal fixation) fracture Current Visit: Yes Status: Acute (3) Common bile duct dilatation Current Visit: Yes Status: Acute (4) Acute blood loss anemia Current Visit: Yes Status: Acute (5) Epigastric pain Current Visit: Yes Status: Acute (6) Peripheral neuropathy Current Visit: Yes Status: Acute - Plan Status post ORIF. Patient tolerating physical therapy. Patient prefers to go home. Pain management as needed Posttransfusion hemoglobin is stable at 9. MRCP shows dilated common bile duct which could be physiologic. No CBD stone identified. Normal pancreatic duct caliber. Continue gabapentin. Continue Protonix for GERD. Lovenox for DVT prophylaxis. Nicotine patch. PT reassessment on Saturday to see if she will qualify to go home. Physician Review: Patient Assessed, Agree with Above Assessment and Plan
[2020-07-24] MEDS: ENOXAPARIN 40 MG/0.4 ML SQ SCH (16:20)
[2020-07-24] MEDS: MELATONIN 5 MG TABLET PO PRN (20:38)
[2020-07-25] MEDS: ONDANSETRON 4 MG/2 ML VIAL IV PRN ×2 (03:23→11:22)
[2020-07-25] MEDS: NICOTINE 21 MG/PAT TD SCH (08:07)
[2020-07-25] MEDS: HYDROCODONE/APAP 5/325 MG TAB PO PRN (08:08)
[2020-07-25] MEDS: LORAZEPAM 0.5 MG TABLET PO PRN (08:08)
[2020-07-25] MEDS: ENSURE ENLIVE 237 ML CAN PO SCH (08:09)
[2020-07-25] MEDS: GABAPENTIN 300 MG CAP PO SCH (08:09)
[2020-07-25] MEDS: PANTOPRAZOLE 40MG TABLET PO SCH (08:09)
[2020-07-25] MEDS: ESCITALOPRAM 20 MG TAB PO SCH (08:09)
[2020-07-25 08:15] VITALS: O2SAT 95
[2020-07-25] MEDS: MORPHINE 4 MG/ML SYR IV PRN (11:22)
[2020-07-25 12:10] VITALS: BP 133/63; TEMP 98.3
--- NOTE | 2020-07-25 13:15 | P.DS ---
Admission Date: 07/17/20 Discharge Date: 07/25/20 Disposition: [place] HOME/HOME HEALTH CARE Discharge Condition: FAIR Reason for Admission: Left intratrochanteric fracture - Problems (1) Closed left hip fracture Status: Acute (2) S/P ORIF (open reduction internal fixation) fracture Status: Acute (3) Common bile duct dilatation Status: Acute (4) Acute blood loss anemia Status: Acute (5) Epigastric pain Status: Acute (6) Peripheral neuropathy Status: Acute Brief History of Present Illness: 75-year-old woman with a past medical history of Neuropathy, anxiety,presented to ED after a mechanical fall. She denied loss of consciousness or hitting her head during the fall. In the ED, she was found to have a left intertrochanteric fracture. Orthopedic surgery was contacted who recommended admission the hospitalist service for him to consult. Patient also reported nausea, vomiting, and epigastric abdominal pain of 2 days duration. She reported recent hospitalization been ambulating why she was told there is a problem with her pancreas. Patient stated she signed out AMA to take care of her dying brother and did not continue with further evaluation. The patient was admitted for further management. Hospital Course: Patient admitted to the medical floor, seen by orthopedic surgeon-Dr. Macdonald will performed ORIF, with intramedullary kallie fixation. Patient was monitored in the postop period, placed on DVT prophylaxis-heparin and then later lovenox. She was also treated for GERD with protonix. CT abdomen and pelvis showed dilated CBD. This was followed by a MRCP which confirmed a dilated CBD which could be physiologic secondary to cholecystectomy. No CBD stone identified. Normal pancreatic duct caliber. Her hemoglobin dropped from 13 on presentation to 7.4. She was symptomatic during physical therapy. She was given 1 unit PRBC transfusion which brought his hemoglobin up to 9. Patient is prescribed Xarelto for DVT prophylaxis for 2 more weeks followed by aspirin for [address] Macdonald recommendation. She will follow with Dr. Macdonald next week in the office. She was seen by physical therapy, her functional status improved significantly. She was able to ambulate more than 200 feets and transfer without much effort. Patient declined skilled rehab placement and requested home with physical therapy. Patient deemed stable for home with physical therapy. Dr. Macdonald also informed of patient's preference. Vital Signs/Physical Exam: Temp Pulse Resp BP Pulse Ox 98.3 F 76 17 133/63 94 07/25/20 12:00 07/25/20 12:00 07/25/20 12:00 07/25/20 12:00 07/25/20 12:00 General: Alert, In no apparent distress, Oriented x3 Neck: JVD not distended Respiratory: Clear to auscultation bilaterally, Normal air movement Cardiovascular: No edema, Regular rate/rhythm, Normal S1 S2 Gastrointestinal: Soft and benign, Non-distended, No tenderness Musculoskeletal: No swelling Integumentary: No rashes Neurological: Normal strength at 5/5 x4 extr Laboratory Data at Discharge: WBC 8.00 K/uL (4.3-10.9) D 07/23/20 03:50 Hgb 9.5 g/dL (12.0-15.0) L 07/25/20 03:15 Hct 29.0 % (36.0-45.0) L 07/25/20 03:15 Plt Count 200 K/uL (152-406) 07/23/20 03:50 PT 11.7 SECONDS (9.5-12.5) 07/17/20 13:46 INR 1.02 07/17/20 13:46 Sodium 147 mmol/L (136-145) H 07/22/20 05:46 Potassium 4.0 mmol/L (3.5-5.1) 07/22/20 07:47 BUN 6 mg/dL (7-18) L 07/22/20 05:46 Creatinine 0.45 mg/dL (0.55-1.3) L 07/22/20 05:46 Glucose 77 mg/dL (74-106) 07/22/20 05:46 Phosphorus 2.5 mg/dL (2.5-4.9) 07/23/20 03:50 Magnesium 2.1 mg/dL (1.8-2.4) 07/22/20 05:46 Total Bilirubin 0.5 mg/dL (0.2-1.0) 07/19/20 03:25 AST 35 U/L (15-37) 07/19/20 03:25 ALT 43 U/L (12-78) 07/19/20 03:25 Alkaline Phosphatase 78 U/L (45-117) 05/04/21 03:25 Lipase 162 U/L (73-393) 07/19/20 03:25 Home Medications: Escitalopram [Lexapro*] 20 mg PO DAILY 07/17/20 Gabapentin 600 mg PO BID 07/17/20 Ensure Enlive 237 ml PO BID #60 can 07/25/20 Hydrocodone 5/APAP 325 [[place] 5/325*] 1 tab PO Q6HP PRN #20 tab 07/25/20 Melatonin 10 mg PO BEDTIME PRN PRN #30 tablet 07/25/20 Pantoprazole [Protonix Tab*] 40 mg PO BIDAC #60 tab 07/25/20 Rivaroxaban [Xarelto] 10 mg PO DAILY #14 tablet 07/25/20 New Medications: Hydrocodone 5/APAP 325 [[place] 5/325*] 1 tab PO Q6HP PRN #20 tab PRN Reason: Pain Scale 5-7 (Moderate) Ensure Enlive 237 ml PO BID #60 can Melatonin 10 mg PO BEDTIME PRN PRN #30 tablet PRN Reason: Insomnia Pantoprazole [Protonix Tab*] 40 mg PO BIDAC #60 tab Rivaroxaban [Xarelto] 10 mg PO DAILY #14 tablet Diet: Regular Activity: Weight bearing as tolerated Followup: Chris Macdonald MD [ACTIVE - CAN ADMIT] - 1 Week (orthorpedic doctor- call to schedule an appointment ) Guillermo Montgomery MD [UNKNOWN] - 1-2 Weeks (PCP- call to schedule an appointment ) Time spent managing pt's care (in minutes): 37
== END 2020-07-25 14:05 | disposition home health service (06) | DRG 481 ==
LOC: ER 12:10 → ERHOLD 15:17 → 4TH 16:59
PROVIDERS: ADMIT Hospitalist; ATTEND Internal Medicine
PROC: 0QH736Z Insertion of Intramedullary Internal Fixation Device into Left Upper Femur, Percutaneous Approach (ICD-10-PCS; principal; 2020-07-18 11:30)
PROC: 30233N1 Transfusion of Nonautologous Red Blood Cells into Peripheral Vein, Percutaneous Approach (ICD-10-PCS; 2020-07-23)
DX: S72.142A Displaced intertrochanteric fracture of left femur, initial encounter for closed fracture (principal); D62 Acute posthemorrhagic anemia; G62.9 Polyneuropathy, unspecified; D69.6 Thrombocytopenia, unspecified; K21.9 Gastro-esophageal reflux disease without esophagitis; K83.8 Other specified diseases of biliary tract; F41.9 Anxiety disorder, unspecified; F17.210 Nicotine dependence, cigarettes, uncomplicated; W18.30XA Fall on same level, unspecified, initial encounter; Z88.5 Allergy status to narcotic agent; Z79.899 Other long term (current) drug therapy; Z90.49 Acquired absence of other specified parts of digestive tract; Z79.01 Long term (current) use of anticoagulants; Z20.822 Contact with and (suspected) exposure to COVID-19
CPT/HCPCS: 36415; 51702; 71045; 73530; 74177; 74181; 76705; 80048; 80053; 80076; 80307; 81003; 81015; 83690; 83735; 83880; 84100; 84132; 84439; 84443; 84484; 85014; 85018; 85025; 85610; 86850; 86900; 86901; 94760; 96374; 96375; 97110; 97116; 97161; 97530; 99285; G0390; J0690; J1644; J1650; J2175; J2250; J2270; J2405; J2550; J2704; J3010; J7030; J7050; P9016; Q9967; U0003

== ENCOUNTER 2020-08-16 15:41 | Emergency (ER) | payer OTHER ==
[2020-08-16] MEDS ORDERED: HYDROCODONE/APAP 5/325 MG TAB ONE (20:02)
[2020-08-16] MEDS ORDERED: IBUPROFEN 200 MG TAB PO ONE (20:02)
[2020-08-16] MEDS ORDERED: IBUPROFEN 400 MG TAB ONE (20:03)
[2020-08-16] MEDS ORDERED: FENTANYL CITR 100 MCG/2 ML ONE (20:58)
--- NOTE | 2020-08-16 20:59 | ER ---
Nurse's Notes [facility] Name: Zaid Travis Age: 75 yrs Sex: Female : 1945 Arrival Date: 08/16/2020 Time: 15:42 Bed 17 Private MD: Diagnosis: Pain in hip-bilateral;Pain in knee-bilateral;Fall from non-moving wheelchair Presentation: 08/16 15:56 Chief complaint: EMS states: left knee and hip pain due to fall from wheelchair at 0200 jl7 this morning. Coronavirus screen: Client denies travel out of the [place] in the last 14 days. At this time, the client does not indicate any symptoms associated with coronavirus-19. Ebola Screen: No symptoms or risks identified at this time. Initial Sepsis Screen: Does the patient meet any 2 criteria? No. Patient's initial sepsis screen is negative. Does the patient have a suspected source of infection? No. Patient's initial sepsis screen is negative. Risk Assessment: Do you want to hurt yourself or someone else? Patient reports no desire to harm self or others. Onset of symptoms was August 16, 2020 at 02:00. Care prior to arrival: Medication(s) given: 50 mcg Fentanyl IVP IV initiated. 20 GA, in the left antecubital area. 15:56 Method Of Arrival: EMS: [facility] jl7 15:56 Acuity: SANJAY 3 jl7 Historical: - Allergies: 15:59 Codeine; itching; jl7 - PMHx: 15:59 Bipolar disorder; jl7 - Immunization history:: Adult Immunizations unknown. - Social history:: Smoking status: unknown. Screenin:36 Abuse screen: Denies threats or abuse. Nutritional screening: No deficits noted. ea Tuberculosis screening: No symptoms or risk factors identified. Fall Risk None identified. Assessment: 19:37 General: Appears uncomfortable, Behavior is appropriate for age. Neuro: Level of ea Consciousness is awake, alert, obeys commands, Oriented to person, place, time. Cardiovascular: Patient's skin is warm and dry. Respiratory: Airway is patent Respiratory effort is even, unlabored, Respiratory pattern is regular, symmetrical. Derm: Skin is pink, warm \T\ dry. 20:30 Reassessment: Patient and/or family updated on plan of care and expected duration. Pain ea level reassessed. Patient is alert, oriented x 3, equal unlabored respirations, skin warm/dry/pink. Awaiting on x ray results. 21:03 Reassessment: Patient and/or family updated on plan of care and expected duration. Pain ea level reassessed. Patient is alert, oriented x 3, equal unlabored respirations, skin warm/dry/pink. 21:13 Reassessment: Patient and/or family updated on plan of care and expected duration. Pain ea level reassessed. Patient is alert, oriented x 3, equal unlabored respirations, skin warm/dry/pink. Discharge instruction given to patient verbalized the understanding of instruction. Pt left ED via wheelchair tolerating well. Pt left with family. Vital Signs: 15:56 BP 160 / 80; Pulse 69; Resp 17; Temp 98.6; Pulse Ox 96% ; jl7 21:03 BP 143 / 60; Pulse 70; Resp 18; Pulse Ox 98% ; ea ED Course: 15:42 Patient arrived in ED. ds1 15:59 Triage completed. jl7 15:59 Arm band placed on right wrist. Patient placed in waiting room, Patient notified of jl7 wait time. 19:34 Ranjith Ceja PA is PHCP. cp 19:34 Vazquez Rodriguez MD is Attending Physician. cp 19:36 Doreen Peralta, PIERRE is Primary Nurse. ea 19:36 Patient has correct armband on for positive identification. Bed in low position. Call ea light in reach. Side rails up X2. 20:40 XRAY Pelvis In Process Unspecified. EDMS 20:40 XRAY Knee LEFT 3 view In Process Unspecified. EDMS 20:40 XRAY Hip LEFT 2 view In Process Unspecified. EDMS 20:40 XRAY Knee RIGHT 3 view In Process Unspecified. EDMS 20:40 XRAY Hip RIGHT 2 view In Process Unspecified. EDMS 21:04 No provider procedures requiring assistance completed. IV discontinued, intact, ea bleeding controlled, No redness/swelling at site. Pressure dressing applied. Administered Medications: 19:45 Drug: HYDROcodone-acetaminophen 5 mg-325 mg 1 tabs Route: Feeding Tube; ea 20:34 Follow up: Response: No adverse reaction; RASS: Alert and Calm (0) ea 19:45 Drug: Ibuprofen 600 mg Route: PO; ea 20:34 Follow up: Response: No adverse reaction ea 20:42 Drug: fentaNYL (PF) 25 mcg Route: IVP; Site: left antecubital; ea 21:04 Follow up: Response: No adverse reaction; RASS: Alert and Calm (0) ea Outcome: 20:59 Discharge ordered by MD. cp 21:13 Discharged to home ambulatory, with family. ea 21:13 Condition: stable 21:13 Discharge instructions given to patient, Instructed on discharge instructions, follow up and referral plans. medication usage, Demonstrated understanding of instructions, follow-up care, medications, Prescriptions given X 2. 21:14 Patient left the ED. ea Signatures: Dispatcher [employer] EDMS Kayley Og ds1 Ranjith Ceja PA PA cp Leal, Jahala, RN RN jl7 Doreen Peralta RN RN vincenzo
--- NOTE | 2020-08-16 20:59 | EDPHYS ---
Physician Documentation [facility] Name: Zaid Travis Age: 75 yrs Sex: Female : 1945 Arrival Date: 08/16/2020 Time: 15:42 Bed 17 Private MD: ED Physician Vazquez Rodriguez HPI: 08/16 19:40 This 75 yrs old Female presents to ER via EMS with complaints of Leg Pain. cp 19:40 The patient presents with an injury, pain, that is acute. The complaints affect the cp right hip and left hip and right knee and left knee. Context: resulted from the patient falling, from wheelchair, use of wheelchair. Onset: The symptoms/episode began/occurred today. Associated signs and symptoms: The patient has no apparent associated signs or symptoms. Treatment prior to arrival includes: no previous treatment. Historical: - Allergies: 15:59 Codeine; itching; jl7 - PMHx: 15:59 Bipolar disorder; jl7 - Immunization history:: Adult Immunizations unknown. - Social history:: Smoking status: unknown. ROS: 19:45 MS/extremity: Positive for pain, of the left hip and right hip and left knee and right cp knee, Negative for decreased range of motion, deformity. 19:45 Eyes: Negative for injury, pain, redness, and discharge. cp 19:45 Constitutional: Negative for fever, poor PO intake. 19:45 Cardiovascular: Negative for chest pain. 19:45 Respiratory: Negative for cough, shortness of breath, wheezing. 19:45 Abdomen/GI: Negative for abdominal pain, nausea, vomiting, and diarrhea. 19:45 Neuro: Negative for altered mental status, headache, loss of consciousness, syncope, weakness. 19:45 All other systems are negative. Exam: 19:50 Constitutional: The patient appears in no acute distress, alert, awake, cp non-diaphoretic, non-toxic, well developed, frail, uncomfortable. 19:50 Head/Face: Normocephalic, atraumatic. cp 19:50 Neck: C-spine: vertebral tenderness, is not appreciated, crepitus, is not appreciated, ROM/movement: is normal, is supple, without pain, no range of motions limitations. 19:50 Chest/axilla: Inspection: normal, Palpation: is normal, no crepitus, no tenderness. 19:50 Cardiovascular: Rate: normal, Rhythm: regular. 19:50 Respiratory: the patient does not display signs of respiratory distress, Respirations: normal, no use of accessory muscles, no retractions, labored breathing, is not present, Breath sounds: are clear throughout, no decreased breath sounds. 19:50 Abdomen/GI: Inspection: abdomen appears normal, Palpation: abdomen is soft and non-tender, in all quadrants. 19:50 Back: vertebral tenderness, is not appreciated. 19:50 Musculoskeletal/extremity: Extremities: grossly normal except: noted in the right hip and left hip and right knee and left knee: pain, tenderness, There is no evidence of decreased ROM, deformity, Pulses: noted to be 2+ in the right dorsalis pedis artery and left dorsalis pedis artery. 19:50 Neuro: Orientation: to person, place \T\ time. Mentation: is normal. Vital Signs: 15:56 BP 160 / 80; Pulse 69; Resp 17; Temp 98.6; Pulse Ox 96% ; jl7 21:03 BP 143 / 60; Pulse 70; Resp 18; Pulse Ox 98% ; ea MDM: 19:35 Patient medically screened. cp 19:50 Differential diagnosis: dislocation, closed fracture, contusion. cp 20:40 Data reviewed: vital signs, nurses notes, radiologic studies, plain films. Test cp interpretation: by ED physician or midlevel provider: xrays of right hip negative for fracture, xrays of right knee negative for fracture, xrays of left hip negative for fracture and xrays of left knee negative for fracture. Counseling: I had a detailed discussion with the patient and/or guardian regarding: the historical points, exam findings, and any diagnostic results supporting the discharge/admit diagnosis, radiology results, to return to the emergency department if symptoms worsen or persist or if there are any questions or concerns that arise at home. 08/16 19:15 Order name: XRAY Pelvis rn 08/16 19:15 Order name: XRAY Knee LEFT 3 view rn 08/16 19:15 Order name: XRAY Hip LEFT 2 view rn 08/16 19:39 Order name: XRAY Knee RIGHT 3 view cp 08/16 19:39 Order name: XRAY Hip RIGHT 2 view cp Administered Medications: 19:45 Drug: HYDROcodone-acetaminophen 5 mg-325 mg 1 tabs Route: Feeding Tube; ea 20:34 Follow up: Response: No adverse reaction; RASS: Alert and Calm (0) ea 19:45 Drug: Ibuprofen 600 mg Route: PO; ea 20:34 Follow up: Response: No adverse reaction ea 20:42 Drug: fentaNYL (PF) 25 mcg Route: IVP; Site: left antecubital; ea 21:04 Follow up: Response: No adverse reaction; RASS: Alert and Calm (0) ea Disposition: 08/17 05:53 Co-signature as Attending Physician, Vazquez Rodriguez MD. rn Disposition: 08/16/20 20:59 Discharged to Home. Impression: Pain in hip - bilateral, Pain in knee - bilateral, Fall from non-moving wheelchair. - Condition is Stable. - Discharge Instructions: Knee Pain, Hip Pain. - Prescriptions for Mobic 7.5 mg Oral Tablet - take 1 tablet by ORAL route once daily take with food; 20 tablet. Tramadol 50 mg Oral Tablet - take 1 tablet by ORAL route every 8 hours as needed; 12 tablet. - Medication Reconciliation Form, Thank You Letter, Antibiotic Education, Prescription Opioid Use form. - Follow up: Private Physician; When: 2 - 3 days; Reason: Recheck today's complaints. - Problem is new. - Symptoms have improved. Signatures: Dispatcher [employer] EDVazquez Wyatt MD MD rn Page, Corey, PA PA cp Leal, Jahala RN PIERRE jlDoreen Turner RN RN ea Corrections: (The following items were deleted from the chart) 08/16 19:19 19:15 Hip Right 2 View+RAD.RAD.BRZ ordered. [facility] 19:19 19:15 Knee Right 3 View+RAD.RAD.BRZ ordered. EDLA EDLA 20:59 20:59 08/16/2020 20:59 Discharged to Home. Impression: Pain in hip - bilateral; Pain in cp knee - bilateral. Condition is Stable. Forms are Medication Reconciliation Form, Thank You Letter, Antibiotic Education, Prescription Opioid Use. Follow up: Private Physician; When: 2 - 3 days; Reason: Recheck today's complaints. Problem is new. Symptoms have improved. cp 21:14 20:59 08/16/2020 20:59 Discharged to Home. Impression: Pain in hip - bilateral; Pain in ea knee - bilateral; Fall from non-moving wheelchair. Condition is Stable. Forms are Medication Reconciliation Form, Thank You Letter, Antibiotic Education, Prescription Opioid Use. Follow up: Private Physician; When: 2 - 3 days; Reason: Recheck today's complaints. Problem is new. Symptoms have improved. cp
--- NOTE | 2020-08-16 21:08 | RAD REPORT ---
EXAM DESCRIPTION: RAD - Pelvis - 08/16/2020 8:41 pm CLINICAL HISTORY: BLUNT TRAUMA, fall COMPARISON: Hip In Or dated 07/18/2020 TECHNIQUE: AP imaging of the pelvis was obtained. FINDINGS: Lower lumbar degenerative change present prominent left lateral aspect L4-5. Lumbar spine is incompletely assessed. Bony pelvis appears osteopenic. No sacral ala fractures seen. SI joints show mild degenerative change . Hardware is in place from prior left femoral fracture. No acute findings seen. Proximal right femur is unremarkable. IMPRESSION: No fracture of the bony pelvis. No acute finding identifiable.
--- NOTE | 2020-08-16 21:09 | RAD REPORT ---
EXAM DESCRIPTION: RAD - Hip Left 2 View - 08/16/2020 8:41 pm CLINICAL HISTORY: PAIN, fall COMPARISON: Hip Left 2 View dated 07/17/2020 FINDINGS: AP and frogleg views of the left hip were obtained. Hardware is in place from prior fracture repair. Hardware is well positioned with no unexpected findi ng. Cahto bone shows no new fracture change. No pathologic or worrisome bone process identifiable. L eft hemipelvis is intact. No soft tissue abnormality. IMPRESSION: Negative left hip examination for acute or significant findings. Cahto bone and surgical fixation hardware show no unexpected finding.
--- NOTE | 2020-08-16 21:12 | RAD REPORT ---
EXAM DESCRIPTION: RAD - Knee Left 3 View - 08/16/2020 8:41 pm CLINICAL HISTORY: PAIN, fall COMPARISON: No comparisons FINDINGS: Bones are osteopenic. No acute fracture is confirmed on this study. Patient has advanced d egenerative changes in the knee joint. Medial compartment narrowing with marginal spurring and irregu lar contour to the articular surface noted. Lateral compartment marginal spurs are present. Multiple calcifications are seen along the posterior joint suspected to be 1 or more loose bodies.No joint eff usion seen. Patella femoral joint space is narrowed with significant patella marginal spurs. No soft tissue abnormality. IMPRESSION: Advanced knee joint degenerative changes are present without an acute finding confirmed. Clinical concerns for internal derangement or occult bony injury could be further assessed with MR im aging. If there is more urgent need for possible occult fracture, thin section CT imaging could be performed .
--- NOTE | 2020-08-16 21:13 | RAD REPORT ---
EXAM DESCRIPTION: RAD - Knee Right 3 View - 08/16/2020 8:41 pm CLINICAL HISTORY: PAIN, fall COMPARISON: No comparisons FINDINGS: No fracture, dislocation or periosteal reaction.No joint effusion seen. No significant oumou nt space narrowing. Medial and lateral compartment marginal spurs are present. Spurring is present at the Achilles attachment to the patella. No foreign body or other soft tissue abnormality. IMPRESSION: Degenerative changes are present as detailed. Findings are much less pronounced than see n in the left knee. No acute bone or joint finding. Clinical concerns for internal derangement or occult bony injury could be further assessed with MR im aging.
--- NOTE | 2020-08-16 21:19 | RAD REPORT ---
EXAM DESCRIPTION: RAD - Hip Right 2 View - 08/16/2020 8:41 pm CLINICAL HISTORY: PAIN COMPARISON: No comparisons FINDINGS: AP and frog-leg views of the right hip were obtained. There is no fracture or dislocation. No AVN or focal head abnormality. Right angelita pelvis is osteopeni c. Degenerative spurring is seen along the superior acetabular rim. No periarticular abnormality seen . Vascular calcifications are present. Bone or calcific density lateral to the right ischium is not s een as an acute finding. IMPRESSION: Negative right hip examination for acute or significant findings.
[2020-08-16 21:22] VITALS: TEMP 98.6
[2020-08-16 21:23] VITALS: BP 143/60; O2SAT 98
== END 2020-08-16 21:14 | disposition home or self-care (01) ==
LOC: ER 15:41
DX: M25.551 Pain in right hip (principal); M25.552 Pain in left hip; M25.561 Pain in right knee; M25.562 Pain in left knee; W05.0XXA Fall from non-moving wheelchair, initial encounter; F31.9 Bipolar disorder, unspecified
CPT/HCPCS: 72170; 73502 ×2; 73562 ×2; 96374; 99284; J3010

== ENCOUNTER 2021-04-01 17:15 | Observation (INO) | payer OTHER ==
--- OUTSIDE RECORDS SUMMARY | 2021-04-01 17:21 | XMS REPORT | Continuity of Care Document ---
:1945 Author Organization [facility] t Address [address] [place] [place] [address] Care Team Providers Name Role Phone aTylor Lopez MD Primary Care Physician [phone] Rosalino Lopez MD Attending Clinician Krishna Allen Attending Clinician Unavailable Cain Adame Attending Clinician Unavailable Doctor Unassigned, Name Attending Clinician Unavailable Cain Jovel LMSW Attending Clinician Unavailable ROSALINO LOPEZ Attending Clinician Unavailable Gaudencio JAY, A Attending Clinician Unavailable Sonali DISTRIBUTION TECH, G Attending Clinician Yari FLEMING S Attending Clinician Fiona CARRINGTON Attending Clinician Unavailable Singer MELENDEZ Attending Clinician Cain Adame Admitting Clinician Unavailable Payers Payer Name Policy Type Policy Number Effective Date Expiration Date S [facility] [id number] 2017 DUAL COMPLETE HMO 00:00:00 [facility] [id number] 2012 00:00:00 MEDICAID OF [place] [id number] 2017 00:00:00 Problems Condition Condition Condition Status Onset Resolution Last Treating Co mments Source Name Details Category Date Date Treatment Clinician Date Depression Depression Disease Active 2014-03 U marcelle 04-19 ity of 00:00: [place] 00 Medical Branch Sciatica Sciatica Disease Active 2014-03 Unive rs of left of left 2- ity of side side 00:00: [place] [address] Medical [place] COPD COPD Disease Active 2014-03 Univers (chronic (chronic 04-19 [place] obstructiv obstructiv [place] Medical pulmonary pulmonary Bran ch disease) disease) Allergies, Adverse Reactions, Alerts Allergy Allergy Status Severity Reaction(s) Onset Inactive Treating Comm ents Source Name Type Date Date Clinician codeine DA Active SV "SENSATION 2020-03 [facility] OF 1-10 [place] SPIDERWEBS 00:00: [place] TO FACE", 00 [facility] ITCHING [place] Acetamin Propensi Active Itching Unive rs ophen-Co ty to 7-12 ity of deine adverse 00:00: [place] reaction 00 [facility] ACETAMIN DRUG Active ITCHING Univers OPHEN-CO 7- ity of DEINE 00:00: [address] codeine DA Active U 2008-0 [facility] 1[facility]16 [place] 00:00: [address] CODEINE DA Active U 2008-0 [facility] [place] 00:00: [address] No Known DA Active U 2008-0 [facility] Contrast 1-11 [place] Allergie 00:00: [address] No Known DA Active U 2008-0 [facility] Food 1-11 [place] Allergie 00:00: [address] No Known DA Active U 2008-0 [facility] Other 1-11 [place] Allergie 00:00: [address] Social History Social Habit Start Date Stop Date Quantity Comments Source Exposure to Not sure [facility] SARS-CoV-2 (event) [facility] History of tobacco Cigarette Smoker University of use [facility] History [facility] University o f Alcohol Frequency [facility] History [facility] o f Alcohol Std Drinks [facility] History [facility] o f Alcohol Binge [facility] [place] Alcohol intake 2020-04-18 2020-04-18 0 /d University of 00:00:00 00:00:00 [facility] Cigarettes smoked 2015-02-16 2015-02-16 Univers ity of current (pack per 00:00:00 00:00:00 [facility]) - Reported Branch Cigarette 2015-02-16 2015-02-16 University of pack-years 00:00:00 00:00:00 [facility] Alcohol Comment 2015-02-16 2015-02-16 occ Universit y of 00:00:00 00:00:00 [facility] Tobacco use and 2015-02-16 2015-02-16 Never used Universit y of exposure 00:00:00 00:00:00 [facility] Sex [birth year] Universit y of 00:00:00 00:00:00 [facility] Smoking Status Start Date Stop Date Source Current every day smoker 2015-02-16 00:00:00 Uni versity of [facility] Medications Ordered Filled Start Stop Current Ordering Indication Dosage Frequency Signature Comments Components Source Medication Medication Date Date Medication? Clinician (SIG) Name Name ondansetron Yes [id number] 4mg Take 1 Univers 4 mg tablet 8-09 tablet by ity of 00:00: mouth [place] 00 every 8 Medical (eight) Branch hours. pantoprazol 2020- Yes [id number] 40mg Take 1 Univers e 40 mg EC 8-09 tablet by ity of tablet 00:00: mouth [place] 00 daily. Medical Branch ondansetron 0 Yes [id number] 4mg Take 1 Univers 4 mg tablet 8-09 tablet by ity of 00:00: mouth [place] 00 every 8 Medical (eight) Branch hours. pantoprazol 2020-0 Yes [id number] 40mg Take 1 Univers e 40 mg EC 8-09 tablet by ity of tablet 00:00: mouth [place] 00 daily. Medical Branch ondansetron 2020-0 Yes [id number] 4mg Take 1 Univers 4 mg tablet 8-09 tablet by ity of 00:00: mouth [place] 00 every 8 Medical (eight) Branch hours. pantoprazol 2020-0 Yes [id number] 40mg Take 1 Univers e 40 mg EC 8-09 tablet by ity of tablet 00:00: mouth [place] 00 daily. Medical Branch ondansetron 2020-0 Yes [id number] 4mg Take 1 Univers 4 mg tablet 8-09 tablet by ity of 00:00: mouth [place] 00 every 8 Medical (eight) Branch hours. pantoprazol 2020-0 Yes [id number] 40mg Take 1 Univers e 40 mg EC 8-09 tablet by ity of tablet 00:00: mouth [place] 00 daily. Medical Branch ondansetron Yes [id number] 4mg Take 1 Univers 4 mg tablet 8-09 tablet by ity of 00:00: mouth [place] 00 every 8 Medical (eight) Branch hours. pantoprazol 2020-0 Yes [id number] 40mg Take 1 Univers e 40 mg EC 8-09 tablet by ity of tablet 00:00: mouth [place] 00 daily. Medical Branch ondansetron Yes [id number] 4mg Take 1 Univers 4 mg tablet 8-09 tablet by ity of 00:00: mouth [place] 00 every 8 Medical (eight) Branch hours. pantoprazol Yes [id number] 40mg Take 1 Univers e 40 mg EC 8-09 tablet by ity of tablet 00:00: mouth [place] 00 daily. Medical Branch ondansetron Yes [id number] 4mg Take 1 Univers 4 mg tablet 8-09 tablet by ity of 00:00: mouth [place] 00 every 8 Medical (eight) Branch hours. pantoprazol 2020- Yes [id number] 40mg Take 1 Univers e 40 mg EC 8-09 tablet by ity of tablet 00:00: mouth [place] 00 daily. Medical Branch famotidine 2020- No 20mg 20 mg, Univ ers (PEPCID 04-19 Slow IV ity of (PF)) 01:00: 00:06 Push, [place] injection 00 :00 ONCE, 1 Medical 20 mg dose, [facility] 04/18/20 at 1900, KHANH NaCl 0.9% 2020- No 1000mL at 999 Uni vers (NS) IV 04-18 mL/hr, ity of infusion 23:30: 01:00 Intravenou [place] 1,000 mL 00 :00 s, ONCE, 1 Medic al dose, [facility] 04/18/20 at 1730, Routine ketorolac 2020- No 15mg 15 mg, Unive rs (TORADOL) 04-18 Slow IV ity of injection 23:30: 22:35 Push, [place] 15 mg 00 :00 ONCE, 1 Medical dose, [facility] 04/18/20 at 1730, Routine
juice bar team member approving Restricted medication : ERNESTINA PATIÑO morpHINE 2021-0 2021- No 4mg 4 mg, Slow Un vilma injection 4 04-18 IV Push, ity of mg 23:30: 22:35 ONCE, 1 [place] 00 :00 dose, Mon Medical 04/18/20 at Branch 1730, STAT ondansetron 2020- No 4mg 4 mg, Slow Univers (ZOFRAN 04-18 IV Push, ity of (PF)) 23:30: 22:35 ONCE, 1 [place] injection 4 00 :00 dose, Mon Med ical mg 04/18/20 at Branch 1730, KHANH iohexol 2020- No 120mL 120 mL, Unive rs (OMNIPAQUE 04-18 Intravenou it y of 350 23:15: 22:59 s, ONCE, 1 [place] BULK-150 00 :00 dose, Mon Medica l mL) 04/18/20 at Branch injection 1715, 120 mL Routine sucralfate 0 Yes [id number] 1g Take 1 U nivers 1 gram 2-01 tablet by ity of tablet 00:00: mouth [place] 00 before Medical meals and Branch at bedtime. dicyclomine 0 Yes [id number] 20mg Take 1 Univers 20 mg 2-01 tablet by ity of tablet 00:00: mouth 00 (four) Medical times Branch daily. proMETHazin 0 Yes [id number] 25mg Take 1 Univers e 25 mg 2-01 tablet by ity of tablet 00:00: mouth [place] 00 every 6 Medical (six) Branch hours as needed for Nausea and Vomiting (N/V). sucralfate 0 Yes [id number] 1g Take 1 U nivers 1 gram 2-01 tablet by ity of tablet 00:00: mouth [place] 00 before Medical meals and Branch at bedtime. dicyclomine 2020-0 Yes [id number] 20mg Take 1 Univers 20 mg 2-01 tablet by ity of tablet 00:00: mouth 4 00 (four) Medical times Branch daily. proMETHazin 2020-0 Yes [id number] 25mg Take 1 Univers e 25 mg 2-01 tablet by ity of tablet 00:00: mouth [place] 00 every 6 Medical (six) Branch hours as needed for Nausea and Vomiting (N/V). sucralfate 2020-0 Yes [id number] 1g Take 1 U nivers 1 gram 2-01 tablet by ity of tablet 00:00: mouth [place] 00 before Medical meals and Branch at bedtime. dicyclomine 2020-0 Yes [id number] 20mg Take 1 Univers 20 mg 2-01 tablet by ity of tablet 00:00: mouth 4 [place] 00 (four) Medical times Branch daily. proMETHazin 2020-0 Yes [id number] 25mg Take 1 Univers e 25 mg 2-01 tablet by ity of tablet 00:00: mouth [place] 00 every 6 Medical (six) Branch hours as needed for Nausea and Vomiting (N/V). sucralfate 2020-0 Yes [id number] 1g Take 1 U nivers 1 gram 2-01 tablet by ity of tablet 00:00: mouth [place] 00 before Medical meals and Branch at bedtime. dicyclomine 2020-0 Yes [id number] 20mg Take 1 Univers 20 mg 2-01 tablet by ity of tablet 00:00: mouth 4 00 (four) Medical times Branch daily. proMETHazin 2020-0 Yes [id number] 25mg Take 1 Univers e 25 mg 2-01 tablet by ity of tablet 00:00: mouth [place] 00 every 6 Medical (six) Branch hours as needed for Nausea and Vomiting (N/V). sucralfate 2020-0 Yes [id number] 1g Take 1 U nivers 1 gram 2-01 tablet by ity of tablet 00:00: mouth [place] 00 before Medical meals and Branch at bedtime. dicyclomine 2020-0 Yes [id number] 20mg Take 1 Univers 20 mg 2-01 tablet by ity of tablet 00:00: mouth 4 00 (four) Medical times Branch daily. proMETHazin 2021-0 Yes [id number] 25mg Take 1 Univers e 25 mg 2-01 tablet by ity of tablet 00:00: mouth [place] 00 every 6 Medical (six) Branch hours as needed for Nausea and Vomiting (N/V). sucralfate 1-0 Yes [id number] 1g Take 1 U nivers 1 gram 2-01 tablet by ity of tablet 00:00: mouth [place] 00 before Medical meals and Branch at bedtime. dicyclomine 1-0 Yes [id number] 20mg Take 1 Univers 20 mg 2-01 tablet by ity of tablet 00:00: mouth 4 00 (four) Medical times Branch daily. proMETHazin 2020-0 Yes [id number] 25mg Take 1 Univers e 25 mg 2-01 tablet by ity of tablet 00:00: mouth [place] 00 every 6 Medical (six) Branch hours as needed for Nausea and Vomiting (N/V). sucralfate 2020-0 Yes [id number] 1g Take 1 U nivers 1 gram 2-01 tablet by ity of tablet 00:00: mouth [place] 00 before Medical meals and Branch at bedtime. dicyclomine 2020-0 Yes [id number] 20mg Take 1 Univers 20 mg 2-01 tablet by ity of tablet 00:00: mouth 00 (four) Medical times Branch daily. proMETHazin 2020-0 Yes [id number] 25mg Take 1 Univers e 25 mg 2-01 tablet by ity of tablet 00:00: mouth [place] 00 every 6 Medical (six) Branch hours as needed for Nausea and Vomiting (N/V). sucralfate 2020-0 Yes [id number] 1g Take 1 U nivers 1 gram 2-01 tablet by ity of tablet 00:00: mouth [place] 00 before Medical meals and Branch at bedtime. dicyclomine 2020-0 Yes [id number] 20mg Take 1 Univers 20 mg 2-01 tablet by ity of tablet 00:00: mouth (four) Medical times Branch daily. proMETHazin 2020-0 Yes [id number] 25mg Take 1 Univers e 25 mg 2-01 tablet by ity of tablet 00:00: mouth [place] 00 every 6 Medical (six) Branch hours as needed for Nausea and Vomiting (N/V). sucralfate 2020-0 Yes [id number] 1g Take 1 U nivers 1 gram 2-01 tablet by ity of tablet 00:00: mouth [place] 00 before Medical meals and Branch at bedtime. dicyclomine 2020-0 Yes [id number] 20mg Take 1 Univers 20 mg 2-01 tablet by ity of tablet 00:00: mouth 4 00 (four) Medical times Branch daily. proMETHazin 2020-0 Yes [id number] 25mg Take 1 Univers e 25 mg 2-01 tablet by ity of tablet 00:00: mouth [place] 00 every 6 Medical (six) Branch hours as needed for Nausea and Vomiting (N/V). sucralfate 2020-0 Yes [id number] 1g Take 1 U nivers 1 gram 2-01 tablet by ity of tablet 00:00: mouth [place] 00 before Medical meals and Branch at bedtime. dicyclomine 2020-0 Yes [id number] 20mg Take 1 Univers 20 mg 2-01 tablet by ity of tablet 00:00: mouth 4 00 (four) Medical times Branch daily. proMETHazin 2020-0 Yes [id number] 25mg Take 1 Univers e 25 mg 2-01 tablet by ity of tablet 00:00: mouth [place] 00 every 6 Medical (six) Branch hours as needed for Nausea and Vomiting (N/V). sucralfate 2020-0 Yes [id number] 1g Take 1 U nivers 1 gram 2-01 tablet by ity of tablet 00:00: mouth [place] 00 before Medical meals and Branch at bedtime. dicyclomine 2020-0 Yes [id number] 20mg Take 1 Univers 20 mg 2-01 tablet by ity of tablet 00:00: mouth 00 (four) Medical times Branch daily. proMETHazin 2020-0 Yes [id number] 25mg Take 1 Univers e 25 mg 2-01 tablet by ity of tablet 00:00: mouth [place] 00 every 6 Medical (six) Branch hours as needed for Nausea and Vomiting (N/V). sucralfate 2020-0 Yes [id number] 1g Take 1 U nivers 1 gram 2-01 tablet by ity of tablet 00:00: mouth [place] 00 before Medical meals and Branch at bedtime. dicyclomine 2020-0 Yes [id number] 20mg Take 1 Univers 20 mg 2-01 tablet by ity of tablet 00:00: mouth 4 00 (four) Medical times Branch daily. proMETHazin 2020-0 Yes [id number] 25mg Take 1 Univers e 25 mg 2-01 tablet by ity of tablet 00:00: mouth [place] 00 every 6 Medical (six) Branch hours as needed for Nausea and Vomiting (N/V). gabapentin 2019-1 Yes [id number] 600mg Take 2 Univers 300 mg 2-02 capsules ity of capsule 00:00: [place] mouth 2 [place] 00 (two) Medical times Branch daily. escitalopra 2020- Yes [id number] 20mg Take 1 Univers m oxalate 2-02 tablet by ity o f 20 mg 00:00: mouth [place] tablet 00 daily. Medical Branch gabapentin 2020- Yes [id number] 600mg Take 2 Univers 300 mg 2-02 capsules ity of capsule 00:00: by mouth 2 [place] 00 (two) Medical times Branch daily. escitalopra 2020- Yes [id number] 20mg Take 1 Univers m oxalate 2-02 tablet by ity o f 20 mg 00:00: mouth [place] tablet 00 daily. Medical Branch gabapentin 2019- Yes [id number] 600mg Take 2 Univers 300 mg 2-02 capsules ity of capsule 00:00: by mouth 2 [place] 00 (two) Medical times Branch daily. escitalopra 2020- Yes [id number] 20mg Take 1 Univers m oxalate 2-02 tablet by ity o f 20 mg 00:00: mouth [place] tablet 00 daily. Medical Branch gabapentin 2019- Yes [id number] 600mg Take 2 Univers 300 mg 2-02 capsules ity of capsule 00:00: by mouth 2 [place] 00 (two) Medical times Branch daily. escitalopra 2020- Yes [id number] 20mg Take 1 Univers m oxalate 2-02 tablet by ity o f 20 mg 00:00: mouth [place] tablet 00 daily. Medical Branch gabapentin 2019- Yes [id number] 600mg Take 2 Univers 300 mg 2-02 capsules ity of capsule 00:00: by mouth 2 [place] 00 (two) Medical times Branch daily. escitalopra 2020- Yes [id number] 20mg Take 1 Univers m oxalate 2-02 tablet by ity o f 20 mg 00:00: mouth [place] tablet 00 daily. Medical Branch gabapentin 2020- Yes [id number] 600mg Take 2 Univers 300 mg 2-02 capsules ity of capsule 00:00: by mouth 2 [place] 00 (two) Medical times Branch daily. escitalopra 2020- Yes [id number] 20mg Take 1 Univers m oxalate 2-02 tablet by ity o f 20 mg 00:00: mouth [place] tablet 00 daily. Medical Branch gabapentin 2019- Yes [id number] 600mg Take 2 Univers 300 mg 2-02 capsules ity of capsule 00:00: by mouth 2 [place] 00 (two) Medical times Branch daily. escitalopra 2020- Yes [id number] 20mg Take 1 Univers m oxalate 2-02 tablet by ity o f 20 mg 00:00: mouth [place] tablet 00 daily. Medical Branch gabapentin 2020- Yes [id number] 600mg Take 2 Univers 300 mg 2-02 capsules ity of capsule 00:00: by mouth 2 [place] 00 (two) Medical times Branch daily. escitalopra 2020- Yes [id number] 20mg Take 1 Univers m oxalate 2-02 tablet by ity o f 20 mg 00:00: mouth [place] tablet 00 daily. Medical Branch gabapentin 2020- Yes [id number] 600mg Take 2 Univers 300 mg 2-02 capsules ity of capsule 00:00: by mouth 2 [place] 00 (two) Medical times Branch daily. escitalopra 2020- Yes [id number] 20mg Take 1 Univers m oxalate 2-02 tablet by ity o f 20 mg 00:00: mouth [place] tablet 00 daily. Medical Branch gabapentin 2019- Yes [id number] 600mg Take 2 Univers 300 mg 2-02 capsules ity of capsule 00:00: by mouth 2 [place] 00 (two) Medical times Branch daily. escitalopra 2020- Yes [id number] 20mg Take 1 Univers m oxalate 2-02 tablet by ity o f 20 mg 00:00: mouth [place] tablet 00 daily. Medical Branch gabapentin 2019- Yes [id number] 600mg Take 2 Univers 300 mg 2-02 capsules ity of capsule 00:00: by mouth 2 [place] 00 (two) Medical times Branch daily. escitalopra 2020- Yes [id number] 20mg Take 1 Univers m oxalate 2-02 tablet by ity o f 20 mg 00:00: mouth [place] tablet 00 daily. Medical Branch gabapentin 2020- Yes [id number] 600mg Take 2 Univers 300 mg 2-02 capsules ity of capsule 00:00: by mouth 2 [place] 00 (two) Medical times Branch daily. escitalopra 2020- Yes [id number] 20mg Take 1 Univers m oxalate 2-02 tablet by ity o f 20 mg 00:00: mouth [place] tablet 00 daily. Medical Branch gabapentin 2020- Yes [id number] 600mg Take 2 Univers 300 mg 2-02 capsules ity of capsule 00:00: by mouth 2 [place] 00 (two) Medical times Branch daily. escitalopra 2019-03 Yes [id number] 20mg Take 1 Univers m oxalate 2-02 tablet by ity o f 20 mg 00:00: mouth [place] tablet 00 daily. Medical Branch gabapentin 2019-03 Yes [id number] 600mg Take 2 Univers 300 mg 2-02 capsules ity of capsule 00:00: by mouth 2 [place] 00 (two) Medical times Branch daily. escitalopra 2019-03 Yes [id number] 20mg Take 1 Univers m oxalate 2-02 tablet by ity o f 20 mg 00:00: mouth [place] tablet 00 daily. Medical Branch gabapentin 2019-03 Yes [id number] 600mg Take 2 Univers 300 mg 2-02 capsules ity of capsule 00:00: by mouth 2 [place] 00 (two) Medical times Branch daily. escitalopra 2019-03 Yes [id number] 20mg Take 1 Univers m oxalate 2-02 tablet by ity o f 20 mg 00:00: mouth [place] tablet 00 daily. Medical Branch gabapentin 2019-03 Yes [id number] 600mg Take 2 Univers 300 mg 2-02 capsules ity of capsule 00:00: by mouth 2 [place] 00 (two) Medical times Branch daily. escitalopra 2019-03 Yes [id number] 20mg Take 1 Univers m oxalate 2-02 tablet by ity o f 20 mg 00:00: mouth [place] tablet 00 daily. Medical Branch gabapentin 2018-03 Yes [id number] 600mg Take 2 Univers 300 mg 0-15 capsules ity of capsule 00:00: by mouth 2 [place] 00 (two) Medical times Branch daily. escitalopra 2018-03 Yes [id number] 20mg Take 1 Univers m oxalate 0-15 tablet by ity o f 20 mg 00:00: mouth [place] tablet 00 daily. Medical Branch gabapentin 2018-03 2020- No [id number] 600mg Take 2 Univers 300 mg 0-15 12-02 capsules ity of capsule 00:00: 00:00 by mouth 2 [place] as 00 :00 (two) Medical times Branch daily. escitalopra 2018-03 2020- No [id number] 20mg Take 1 Univers m oxalate 0-15 12-02 tablet by ity of 20 mg 00:00: 00:00 mouth [place] tablet 00 :00 daily. Medical Branch gabapentin 2018-03 2020- No [id number] 600mg Take 2 Univers 300 mg 02-16 capsules ity of capsule 00:00: 00:00 by mouth 2 [place] as 00 :00 (two) Medical times Branch daily. escitalopra 2018-03 2020- No [id number] 20mg Take 1 Univers m oxalate 02-16 tablet by ity of 20 mg 00:00: 00:00 mouth [place] tablet 00 :00 daily. Medical Branch iohexol 2019- No 120mL 120 mL, Unive rs (OMNIPAQUE 10-29 Intravenou it y of 350 17:56: 17:56 s, ONCE, 1 [place] BULK-150 00 :00 dose, Wed Medica l mL) 10/29/18 at Branch injection 1300, 120 mL Routine diphenhydrA 2019- No 25mg 25 mg, Uni vers MINE 10-29 Slow IV ity of (BENADRYL) 17:45: 16:42 Push, [place] injection 00 :00 ONCE, 1 Medical 25 mg dose, Wed Branch 10/29/18 at 1245, STAT haloperidol 2019- No 2.5mg 2.5 mg, U nivers lactate 10-29 Intravenou ity o f (HALDOL) 17:45: 16:39 s, ONCE, 1 [place] injection 00 :00 dose, Wed Medic al 2.5 mg 10/29/18 at Branch 1245, STAT sucralfate 2019- Yes [id number] 1g Take 1 U nivers 1 gram 8-14 tablet by ity of tablet 00:00: mouth [place] 00 before Medical meals and Branch at bedtime. dicyclomine 2019- Yes [id number] 10mg Take 1 Univers (BENTYL) 10 8-14 capsule by it y of mg capsule 00:00: mouth [place] 00 every 8 Medical (eight) Branch hours as needed for Abdominal pain. ondansetron 2019-0 Yes [id number] 4mg Take 1 Univers 4 mg 8-14 tablet by ity of disintegrat 00:00: mouth [place] ing tablet 00 every 8 Medica l (eight) Branch hours as needed for Nausea and Vomiting (N/V). omeprazole 2018- 2019- No [id number] 20mg Take 1 Univers 20 mg 8-14 09-14 capsule by ity of capsule 00:00: 04:59 mouth [place] 00 :00 daily for Medical 30 days. Branch albuterol Yes INHALE ONE Un vilma (PROAIR 6-07 OR TWO ity of HFA) 90 00:00: PUFFS BY [place] mcg/actuati 00 MOUTH Medical on inhaler EVERY FOUR Bra nch HOURS NEEDED albuterol Yes INHALE ONE Un vilma (PROAIR 6-07 OR TWO ity of HFA) 90 00:00: PUFFS BY [place] mcg/actuati 00 MOUTH Medical on inhaler EVERY FOUR Bra nch HOURS NEEDED albuterol 2020- No INHALE ONE U nivers (PROAIR 6-07 12-02 OR TWO ity of HFA) 90 00:00: 00:00 PUFFS BY [place] mcg/actuati 00 :00 MOUTH Medical on inhaler EVERY FOUR Bra nch HOURS NEEDED albuterol 2020- No INHALE ONE U nivers (PROAIR 6- 12-02 OR TWO ity of HFA) 90 00:00: 00:00 PUFFS BY [place] mcg/actuati 00 :00 MOUTH Medical on inhaler EVERY FOUR Bra nch HOURS NEEDED GABAPENTIN 2017- Yes [id number] TAKE 1 U nivers 300 mg 9-13 CAPSULE BY ity of capsule 00:00: MOUTH 3 [place] 00 TIMES A Medical DAY Branch ESCITALOPRA Yes [id number] 20mg TAKE 1 Univers M OXALATE 9-13 TABLET BY ity o f 20 mg 00:00: MOUTH [place] tablet 00 DAILY. Medical Branch ondansetron 2017- 2019- No 4mg Take 1 Uni vers 4 mg 6-30 08-14 tablet by ity of disintegrat 00:00: 00:00 [place] tablet 00 :00 every 8 Medica l (eight) Branch hours as needed for Nausea and Vomiting (N/V). methylPREDN Yes Take by Un vilma ISolone 3-28 mouth ity of (MEDROL, 00:00: SEE-INSTRU Master as HUNG,) 4 mg 00 CTIONS. Medica l tablets follow Branch package directions amoxicillin 2016- Yes 1{tbl} Take 1 Un vilma -clavulanat 9-27 tablet by ity of e 875-125 00:00: mouth [place] mg per 00 every 12 Medical tablet (twelve) Branch hours. cefUROXime 2017- Yes [id number] 250mg Take 1 Univers 250 mg 8-16 tablet by ity of tablet 00:00: mouth 2 [place] 00 (two) Medical times Branch daily. albuterol 2016- Yes [id number] 2.5mg Inhale 3 Univers 2.5 mg /3 1-30 9101 mL every 4 ity of mL (0.083 00:00: (four) [place] %) 00 hours as Medical nebulizer needed for Bran ch solution Wheezing or Shortness of Breath. Immunizations Ordered Filled Immunization Date Status Comments [facility] e Immunization Name Name SARS-COV-2 COVID-19 2020-08-08 Completed Unive rsity of MODERNA VACCINE 00:00:00 [facility] SARS-COV-2 COVID-19 2020-08-08 Completed Unive rsity of MODERNA VACCINE 00:00:00 [facility] SARS-COV-2 COVID-19 2020-08-08 Completed Unive rsity of MODERNA VACCINE 00:00:00 [facility] SARS-COV-2 COVID-19 2020-08-08 Completed Unive rsity of MODERNA VACCINE 00:00:00 [facility] SARS-COV-2 COVID-19 2020-08-08 Completed Unive rsity of MODERNA VACCINE 00:00:00 [facility] SARS-COV-2 COVID-19 2020-08-08 Completed Unive rsity of MODERNA VACCINE 00:00:00 [facility] SARS-COV-2 COVID-19 2020-08-08 Completed Unive rsity of MODERNA VACCINE 00:00:00 [facility] SARS-COV-2 COVID-19 2020-07-08 Completed Unive rsity of MODERNA VACCINE 00:00:00 [facility] SARS-COV-2 COVID-19 2020-07-08 Completed Unive rsity of MODERNA VACCINE 00:00:00 [facility] SARS-COV-2 COVID-19 2020-07-08 Completed Unive rsity of MODERNA VACCINE 00:00:00 [facility] SARS-COV-2 COVID-19 2020-07-08 Completed Unive rsity of MODERNA VACCINE 00:00:00 [facility] SARS-COV-2 COVID-19 2020-07-08 Completed Unive rsity of MODERNA VACCINE 00:00:00 [facility] SARS-COV-2 COVID-19 2020-07-08 Completed Unive rsity of MODERNA VACCINE 00:00:00 [facility] SARS-COV-2 COVID-19 2020-07-08 Completed Unive rsity of MODERNA VACCINE 00:00:00 [facility] Influenza High Dose 2020-02-17 Completed Unive rsity of [place] 00:00:00 [facility] Influenza High Dose 2020-02-17 Completed Unive rsity of [place] 00:00:00 [facility] Influenza High Dose 2020-02-17 Completed Unive rsity of [place] 00:00:00 [facility] Influenza High Dose 2020-02-17 Completed Unive rsity of [place] 00:00:00 [facility] Influenza High Dose 2020-02-17 Completed [facility] 00:00:00 [facility] Influenza High Dose 2020-02-17 Completed [facility] 00:00:00 [facility] Influenza High Dose 2020-02-17 Completed [facility] 00:00:00 [facility] Influenza High Dose 2020-02-17 Completed [facility] 00:00:00 [facility] Influenza High Dose 2020-02-17 Completed [facility] 00:00:00 [facility] Influenza High Dose 2020-02-17 Completed [facility] 00:00:00 [facility] Influenza High Dose 2020-02-17 Completed [facility] 00:00:00 [facility] Influenza High Dose 2020-02-17 Completed [facility] 00:00:00 [facility] Influenza High Dose 2020-02-17 Completed [facility] 00:00:00 [facility] Influenza High Dose 2020-02-17 Completed [facility] 00:00:00 [facility] Influenza High Dose 2020-02-17 Completed [facility] 00:00:00 [facility] Influenza High Dose 2020-02-17 Completed [facility] 00:00:00 [facility] Influenza High Dose 2018-12-30 Completed Unive rsity of 00:00:00 [facility] Influenza High Dose 2018-12-30 Completed Unive rsity of 00:00:00 [facility] Influenza High Dose 2018-12-30 Completed Unive rsity of 00:00:00 [facility] Influenza High Dose 2018-12-30 Completed Unive rsity of 00:00:00 [facility] Influenza High Dose 2018-12-30 Completed Unive rsity of 00:00:00 [facility] Influenza High Dose 2018-12-30 Completed Unive rsity of 00:00:00 [facility] Influenza High Dose 2018-12-30 Completed Unive rsity of 00:00:00 [facility] Influenza High Dose 2018-12-30 Completed Unive rsity of 00:00:00 [facility] Influenza High Dose 2018-12-30 Completed Unive rsity of 00:00:00 [facility] Influenza High Dose 2018-12-30 Completed Unive rsity of 00:00:00 [facility] Influenza High Dose 2018-12-30 Completed Unive rsity of 00:00:00 [facility] Influenza High Dose 2018-12-30 Completed Unive rsity of 00:00:00 [facility] Influenza High Dose 2018-12-30 Completed Unive rsity of 00:00:00 [facility] Influenza High Dose 2018-12-30 Completed Unive rsity of 00:00:00 [facility] Influenza High Dose 2018-12-30 Completed Unive rsity of 00:00:00 [facility] Influenza High Dose 2018-12-30 Completed Unive rsity of 00:00:00 [facility] Influenza High Dose 2018-12-30 Completed [facility]ive [facility]ity of 00:00:00 [facility] Vital Signs Vital Name Observation Time Observation Value Comments Source Systolic blood 2020-10-24 21:22:00 140 mm[Hg] [facility]ity of pressure [facility] Diastolic blood 2020-10-24 21:22:00 74 mm[Hg] [facility] of pressure [facility] Systolic blood 2020-10-24 20:22:00 145 mm[Hg] [facility]iver [facility]ity of pressure [facility] Diastolic blood 2020-10-24 20:22:00 74 mm[Hg] [facility]ive rsity of pressure [facility] Heart rate 2020-10-24 20:22:00 85 /min [facility] [place] Body temperature 2020-10-24 20:22:00 37.39 [place]atta [facility] Body weight 2020-10-24 20:22:00 60.328 kg [facility] BMI 2020-10-24 20:22:00 20.83 kg/m2 [facility] Systolic blood 2020-04-19 00:07:00 172 mm[Hg] [facility] Diastolic blood 2020-04-19 00:07:00 83 mm[Hg] [facility]ive rsity of pressure [facility] Heart rate 2020-04-19 00:07:00 71 /min [facility] Respiratory rate 2020-04-19 00:07:00 20 /min Univ ersity of [facility] Oxygen saturation in 2020-04-19 00:07:00 97 /min University Arterial blood by [facility] Pulse oximetry Branch Body temperature 2020-04-18 21:54:00 37.5 Kenyatta Univ ers[facility] of [facility] Body weight 2020-04-18 21:54:00 58.968 kg [facility] [place] BMI 2020-04-18 21:54:00 20.36 kg/m2 [facility] Systolic blood 2020-02-17 16:47:00 160 mm[Hg] [facility] [place] Diastolic blood 2020-02-17 16:47:00 86 mm[Hg] [facility]ive rsity of pressure [facility] Heart rate 2020-02-17 16:47:00 89 /min [facility]i [facility] of [facility] Body temperature 2020-02-17 16:47:00 37 [place] Univ [facility] of [facility] Body height 2020-02-17 16:47:00 170.2 cm [facility] [place] Body weight 2020-02-17 16:47:00 57.607 kg [facility] BMI 2020-02-17 16:47:00 19.89 kg/m2 [facility] Systolic blood 2018-10-29 19:35:00 120 mm[Hg] Univer sity of pressure [facility] Branch Diastolic blood 2018-10-29 19:35:00 68 mm[Hg] Unive rsity of pressure [facility] Heart rate 2018-10-29 19:35:00 82 /min [facility] Respiratory rate 2018-10-29 19:35:00 18 /min [facility] Oxygen saturation in 2018-10-29 19:35:00 98 /min [facility] Arterial blood by [facility] Pulse oximetry [place] Body temperature 2018-10-29 16:06:00 37.61 Kenyatta [facility] Body weight 2018-10-29 16:06:00 52.164 kg [facility] BMI 2018-10-29 16:06:00 18.01 kg/m2 [facility] Procedures Procedure Date / Time Performing Clinician Source Performed INSURANCE CORRESPONDENCE 2021-01-25 06:01:00 Doctor Unassigned, [facility] Name [facility] INSURANCE CORRESPONDENCE 2020-07-13 05:01:00 Doctor Unassigned, [facility] Name [facility] COVID-19 (ID NOW RAPID 2020-04-19 00:08:00 Ernestina Patiño [facility] TESTING) [facility] URINALYSIS 2020-04-18 23:25:00 Ernestina Patiño [facility] CT ABDOMEN PELVIS W 2020-04-18 23:03:47 Ernestina Patiño [facility] CONTRAST [facility] LIPASE 2020-04-18 22:15:00 Ernestina Patiño [facility] TROPONIN I 2020-04-18 22:15:00 Ernestina Patiño [facility] THYROID STIMULATING 2020-04-18 22:15:00 Ernestina Patiño [facility] HORMONE [facility] HEPATIC FUNCTION PANEL 2020-04-18 22:15:00 Enrestina Patiño [facility] ([id number]) (ALB,T.PRO,BILI [facility] T,BU/BC,ALT,AST,ALK PHOS) BASIC METABOLIC PANEL 2020-04-18 22:15:00 Ernestina Patiño [facility] (NA, K, CL, CO2, GLUCOSE, Medica l Branch BUN, CREATININE, CA) CBC WITH DIFF 2020-04-18 22:15:00 Ernestina Patiño [facility] N-TERMINAL PRO-BNP 2020-04-18 22:15:00 Ernestina Patiño [facility] FLU VACC(),65+ 2020-02-17 16:59:46 Taylor Lopez [facility] YRS,IM,HIGH DOSE QUAD [facility] URINALYSIS 2018-10-29 18:44:00 Hunter [facility] o f [facility] CT ABDOMEN PELVIS W 2018-10-29 18:08:10 Naeem Carroll [facility] CONTRAST [facility] COMP. METABOLIC PANEL 2018-10-29 16:35:00 Hunter [facility] ([id number]) [facility] CBC WITH DIFFERENTIAL 2018-10-29 16:35:00 [facility] Encounters Start End Encounter Admission Attending Care Care Encounter Source Date/Time Date/Time Type Type Clinicians Facility Department ID 2021-01-14 Emergency [facility] [id number] Univers 21:05:21 ity [facility] 2021-03-16 2021-03-16 Telephone Valentina KSREJI [id number] [facility] 00:00:00 00:00:00 [facility] [id number] [facility] [id number] Master as DANNIE?BLEA [phone] [address] MEDICAL OFFICE BUILDING 2021-03-01 2021-03-01 KEYSHA Carroll [id number] Univers 00:00:00 00:00:00 Management Jaswinder ALMEIDA [id number] ity [facility] [id number] Master as [phone] [facility] 082 [place] 2021-01-25 2021-01-27 Inpatient EM Wendi, [facility] TELE [id number] [facility] 18:16:00 16:00:00 Nioti 95 [facility] 2021-01-25 2021-01-27 Inpatient EM Karim, [facility] TELE [id number] [facility] 18:16:00 16:00:00 Nioti [id number] [facility] 2021-01-25 2021-01-25 Orders Doctor CHOPRA [id number] Univers 00:00:00 00:00:00 Only Unassigned, JUAN PABLO [id number] ity of [facility] 4.2.7.2.686 Master as [phone] [facility] 009 [place] 2020-12-08 2020-12-08 Case Vinh Jovel [id number] Univers 00:00:00 00:00:00 Management Sylvia Kolb [id number] ity [phone] [address] 2020-10-24 2020-10-24 Office [facility] [id number] Univers 14:31:40 15:47:57 Visit [facility] [id number] it y of [place] [id number] Master as Professio [phone] [address] One 2020-10-24 2020-10-24 Outpatient R [facility] [id number] Univers 15:15:00 15:15:00 TAYLOR [id number] y [facility] 2020-10-24 2020-10-24 Outpatient R [facility] [id number] Univers 15:15:00 15:15:00 TAYLOR ity [facility] 2020-08-18 2020-08-18 Transition KEYSHA Ratliff [id number] Univers 00:00:00 00:00:00 of Care Elneza A JUAN PABLO [id number] [facility] 4.2.7.2.686 Master as [phone] [address] 2020-08-10 2020-08-10 Telephone [facility] [id number] Univers 00:00:00 00:00:00 [facility] [id number] it y of [place] 4.2.7.2.686 Master as Professio [phone] [address] One 2020-07-13 2020-07-13 Orders Doctor KEYSHA 1.2.840.114 [id number] Univers 00:00:00 00:00:00 Only Unassigned, JUAN PABLO [id number] ity of [facility] 4.2.7.2.686 Master as [phone] [facility] 009 [place] 2020-04-21 2020-04-21 [facility] 1.2.840.114 [id number] Univers 00:00:00 00:00:00 [facility] [id number] it y of [place] 4.2.7.2.686 Master as Professio [phone] Me dical nal 044 [place] Office [facility] One 2020-04-18 2020-04-18 Emergency [facility] [id number] Univers 16:08:00 19:21:00 Ernestina Babb [id number] ity of [place] 4.2.7.2.686 [facility] [phone] [facility] 084 [place] 2020-04-18 2020-04-18 Office [facility] 1.2.840.114 [id number] Univers 16:00:00 16:15:00 Visit [facility] [id number] it y of Surgical 4.2.7.2.686 Master as Specialti [phone] Me dical es 198 [facility] 2020-04-18 2020-04-18 Outpatient Cain CARRINGTON [facility] [id number] Univers 16:00:00 16:00:00 [facility] 2020-04-18 2020-04-18 Outpatient Cain CARRINGTON [facility] [id number] Univers 16:00:00 16:00:[address] [facility] 2020-04-14 2020-04-14 Outpatient Cain CARRINGTON [facility] [id number] Univers 13:45:00 13:45:00 [facility]ON [id number] [facility] 2020-04-14 2020-04-14 Outpatient Cain CARRINGTON [facility] [id number] Univers 13:45:00 13:45:[address] [facility] 2020-02-17 2020-02-17 Office [facility] [id number] Univers 10:37:22 12:18:27 Visit [facility] [id number] it y of [place] [id number] Master as Professio [phone] [address] dicks nal 044 [place] Office [facility] One 2020-02-17 2020-02-17 Outpatient [facility] [id number] Univers 10:30:00 10:30:[address] [facility] 2020-02-17 2020-02-17 Outpatient [facility] [id number] Univers 10:30:00 10:30:00 [facility] 2020-01-25 2020-01-25 [facility] 1.2.840.114 [id number] Univers 00:00:00 00:00:00 [facility] [id number] it y of [place] [id number] Master as Professio [phone] [facility] nal [address] [place] [address] One 2018-10-29 2018-10-29 Emergency [facility] [id number] Univers 11:09:50 14:42:00 Naeem Babb 350.1.13.10 i ty of [place] [phone] [address] Results Test Description Test Time Test Comments Results Result Comments Source LIPASE 2021-01-26 12:07:00 Test Item Value Reference Range Interpretation Comme nts LIPASE (test code = LIP) 59 UNITS/L 23-300 N [id number] 02:02:00 Test Item Value Reference Range Interpretation Comments TROPONIN-I (test code = TROPI) < 0.012 NG/ML 0.012-0.033 L LIPID PROFILE (CORONARY RISK)2021-01-25 23:32:00 Test Item Value Reference Range Interpretation Comments TRIGLYCERIDES (test 130 MG/DL 150-199 L TRIGLYCE RIDES code = TRIG) REFERENCE RANGE:Normal: < 150 mg/dLBorderline High: 150-199 mg/dLHi gh: 200-499 mg/dLVe ry High: >=500 mg/ dL CHOLESTEROL (test code 156 MG/DL <200 = CHOL) HDL CHOLESTEROL (test 35 MG/DL 40-59 L code = HDL) LIPOPROTEIN LDL (test 91 MG/DL 0-99 N code = LDL) OPTIMAL........ .<100 mg/dLNEAR OPTIMAL/ABOVE OPTIMAL........ .100-12 9 mg/dL BORDERLINE HIGH.........13 0-159 mg/dL HIGH.........16 0-189 mg/dL VERY HIGH...... ...>/= 190 mg/dL HEPATIC FUNCTION [id number] 23:21:00 Test Item Value Reference Range Interpretation Comments TOTAL PROTEIN 6.9 G/DL 6.3-8.2 N [facility] Clinical Diagnostic (test code = has made us landen re of PROT) newinformation regarding the potential i nterference ofEltrombopag (a bone marrow stimulan t used to treatthrombocyt onmenia and aplastic anemia ) with specific assays on the [employer] 5600 of which Total Protein is one of thoseassays per formed in our lab.Interfe rence testing perform ed at Ortho determined that Eltrombopag does interfere with Vitros Total Protein asfollowsEltrom bopag Interference fo r Vitros Product Total Protein:======= Eltrombopag Max Observed A vg. BiasConcentrati on Concentration Concentration== ==== 2.5 mg/dl 6.0 g/dl +0.41 +0.34 3.5 mg/dl 6.0 g/dl +0.50 +0.45 5 mg/dl 6.0 g/dl +0.73 +0.65 2.5 mg/dl 8.0 g/dl +0.44 +0.41 3.5 mg/dl 8.0 g/dl +0.55 +0.52 5 mg/dl 8.0 g/dl +0.86 +0.77 ALBUMIN (test 3.7 G/DL 3.5-5.0 N code = ALB) BILIRUBIN TOTAL 0.5 MG/DL 0.2-1.3 N Eltrombopag Interference (test code = for Vitros Prod uct TBil, BILT) BuBc: Assa y Eltrombopag Analyte/ Max Observed Avg. Bias Concentrati on Concentration Concentration== ====TBil 7mg/dl T Andriy/ 1.2mg/dl +0.23 mg.dl +0.20mg/dlBuBc 3.5mg/dl Bu/0.8mg/dl +0.25mg/dl +0 .24mg/dlBuBc 7 mg/dl Bu/14.2mg/dl +0.38mg/dl +0.25mg/dlBuBc 5mg/dl Bc/0mg/dl +0.25mg/dl +0 .15mg/dlBuBc 3.5mg/dl Bc/2.8mg/dl +0.25mg/dl +0.23mg/dl BILIRUBIN DIRECT 0.0 MG/DL 0.0-0.3 N Eltrombopag Interference (test code = for Vitros Prod uct TBil, BILD) BuBc: Assa y Eltrombopag Analyte/ Max Observed Avg. Bias Concentrati on Concentration Concentration== ====TBil 7mg/dl T Andriy/ 1.2mg/dl +0.23 mg.dl +0.20mg/dlBuBc 3.5mg/dl Bu/0.8mg/dl +0.25mg/dl +0 .24mg/dlBuBc 7 mg/dl Bu/14.2mg/dl +0.38mg/dl +0.25mg/dlBuBc 5mg/dl Bc/0mg/dl +0.25mg/dl +0 .15mg/dlBuBc 3.5mg/dl Bc/2.8mg/dl +0.25mg/dl +0.23mg/dl SGOT/AST (test 23 UNITS/L 14-36 N code = AST) SGPT/ALT (test 7 UNITS/L 0-34 N code = ALT) ALKALINE 95 UNITS/L 38-126 N PHOSPHATASE (test code = ALKP) : on blood in labBASIC METABOLIC [id number] 21:03:00 Test Item Value Reference Range Interpretation Comments SODIUM (test code = 142 MMOL/L 137-145 N NA) POTASSIUM (test code = 3.8 MMOL/L 3.5-5.1 N K) CHLORIDE (test code = 109 MMOL/L 98-107 H CL) CARBON DIOXIDE (test 28 MMOL/L 22-30 N code = CO2) GLUCOSE (test code = 99 MG/DL 74-106 N GLU) BLOOD UREA NITROGEN 11 MG/DL 7-17 N (test code = BUN) GLOMERULAR FILTRATION > 60 Report ing units: RATE (test code = GFR) ml/mi n/1.73 m2 (Modified MDRD Formula)Referen ce Range: > or = 6 0 ml/min/1.73 m2 CREATININE (test code 0.60 MG/DL 0.52-1.04 N = CREAT) CALCIUM (test code = 8.7 MG/DL 8.4-10.2 N CA) [id number] 21:03:00 Test Item Value Reference Range Interpretation Comments TROPONIN-I (test code = TROPI) < 0.012 NG/ML 0.012-0.033 L CBC W/AUTO [id number] 20:38:00 Test Item Value Reference Range Interpretation Comments WHITE BLOOD CELL (test code = 8.7 K/MM3 3.8-9.8 N WBC) RED BLOOD CELL (test code = 4.15 M/MM3 3.58-4.97 N RBC) HEMOGLOBIN (test code = HGB) 12.8 G/DL 11.2-14.9 N HEMATOCRIT (test code = HCT) 40.4 % 33.2-43.5 N MEAN CELL VOLUME (test code = 97 fL 80.7-99.1 N MCV) MEAN CELL HGB (test code = MCH) 30.8 pg 27.0-34.1 N MEAN CELL HGB CONCETRATION 31.7 % 32.2-35.7 L (test code = MCHC) RED CELL DISTRIBUTION WIDTH 13.1 % 12.1-15.2 N (test code = RDW) PLATELET COUNT (test code = 169 K/MM3 129-368 N PLT) MEAN PLATELET VOLUME (test code 10.2 fl 7.4-10.4 N = MPV) NEUTROPHIL % (test code = NT%) 59.4 % 43-75 N IMMATURE GRANULOCYTE % (test 0.2 % 0.0-2.0 N code = IG%) LYMPHOCYTE % (test code = LY%) 29.7 % 14-44 N MONOCYTE % (test code = MO%) 8.4 % 4-13 N EOSINOPHIL % (test code = EO%) 1.5 % 0-6 N BASOPHIL % (test code = BA%) 0.8 % 0-2 N NUCLEATED RBC % (test code = 0.0 % 0-1.0 N NRBC%) NEUTROPHIL # (test code = NT#) 5.19 K/mm3 2.0-7.6 N IMMATURE GRANULOCYTE # (test 0.02 x10 3/uL 0-0.03 N code = IG#) LYMPHOCYTE # (test code = LY#) 2.59 K/mm3 1.0-3.8 N MONOCYTE # (test code = MO#) 0.73 K/mm3 0.1-0.8 N EOSINOPHIL # (test code = EO#) 0.13 K/mm3 0.0-0.2 N BASOPHIL # (test code = BA#) 0.07 K/mm3 0.0-0.2 N NUCLEATED RBC # (test code = 0.00 K/mm3 0.0-0.1 N NRBC#) [id number] 19:34:00 Test Item Value Reference Range Interpretation Comments TROPONIN-I (test code = TROPI) < 0.012 NG/ML 0.012-0.033 L COVID-19 (ID NOW RAPID TESTING)2020-04-19 00:38:00 Test Item Value Reference Range Interpretation Comments SARS-CoV-2 Rapid ID NOW Not Detected Not Detected (test code = 76830-9) TANIYA (test code = TANIYA) ID NOW COVID-19 Assay is an isothermal nucleic acid amplification test intended for the qualitative detection of nucleic acid from SARS-CoV-2 viral RNA in nasopharyngeal (DISTRIBUTION TECH) specimens. It is used under Emergency Use Authorization (EUA) by FDA. The limit of detection (LOD) of the assay is 125 Genome Equivalents/mL. A positive result is indicative of the presence of SARS-CoV-2 RNA. ?Clinical correlation with patient history and other diagnostic information is necessary to determine patient infection status. A negative (Not Detected) result does not preclude SARS-CoV-2 infection. In patients with clinical symptoms and other tests that are consistent with SARS-CoV-2 infection, negative results should be treated as presumptive negative and a new specimen should be tested with alternative PCR molecular test. Invalid: Please collect a new specimen for repeat patient testing if clinically indicated. Lab Interpretation Normal (test code = 21728-4) [facility] Test Item Value Reference Range Interpretation Comments APPEARANCE (test code = Clear Clear 5581476524) COLOR (test code = Yellow Yellow 7469733464) PH (test code = 4.8-8.0 5649782036) SP GRAVITY (test code = 1.003-1.030 9616194188) GLU U QUAL (test code = Normal Normal 8878667194) BLOOD (test code = 2+ Negative A 2504133863) KETONES (test code = Negative Negative 7468209573) PROTEIN (test code = Negative Negative 2887-8) UROBILIN (test code = Normal Normal 9723668454) BILIRUBIN (test code = Negative Negative 0652947780) NITRITE (test code = Negative Negative 6620522969) LEUK CHARLENE (test code = Negative Negative 7638529802) RBC/HPF (test code = See_Comment H [Autom ated message] 7567992088) The system [employer] generated this result transmitted ref erence range: 0 - 3 HP F. The reference range was not used to int erpret this result as normal/abnormal . WBC/HPF (test code = <1 See_Comment [Autom ated message] 3115665304) The system [employer] generated this result transmitted ref erence range: 0 - 5 HP F. The reference range was not used to int erpret this result as normal/abnormal . BACTERIA (test code = Few Negative A 0764726631) SQ EPITH (test code = HPF 4918745941) HYAL CAST (test code = See_Comment [Aut omated message] 0057098002) The system [employer] generated this result transmitted ref erence range: <=2 LPF. The reference range was not used to int erpret this result as normal/abnormal . Lab Interpretation (test Abnormal code = 17956-8) [facility] [id number] 23:39:41 Since 10/29/2018, unchanged ?marked thickening of gastric antrum and pyloruswhich may represent muscular hypertrophy or related to chronic ulcerdisease. Unchanged intra and extrahepatic biliary ductal dilatation likely relatedto prior cholecystectomy. However new pancreatic ductal dilatation. Nodularthickening of ampulla relatively unchanged and may represent hypertrophiedpapilla. Recommend correlation with clinical finding and blood test. Givenpancreatic ductal dilatation, an MRCP with contrast canbe performed toevaluate pancreatic head and ampulla. Colonic diverticulosis. Renal and liver cysts. CT ABDOMEN PELVIS W CONTRAST 04/18/2020 4:44 PM HISTORY: Abdominal abscess/infection suspected Nausea/vomiting COMPARISON: CT abdomen pelvis 10/29/2018 TECHNIQUE: Axial images of the abdomen and pelvis were acquired afteradministration of intravenous contrast. Coronal and sagittalreconstructions were also created. FINDINGS: LOWER CHEST: Scattered right lower lobe tree-in-bud nodules, unchanged. HEPATOBILIARY: No hepatomegaly. 1.9 cm cyst in the left lobe. Otherscattered punctate hypodensities, toosmall to characterize but unchangedand likely represent cysts. Mildly dilated CBD measuring 0.9 cm at the pancreatic head and intrahepaticbile duct, unchanged and likely present reservoir phenomena related toprior cholecystectomy. SPLEEN: No splenomegaly. PANCREAS: The pancreatic duct is dilated measuring 0.5 cm at the level ofhead with smooth tapering at ampulla. There is lobulated thickening at theampulla, unchanged and may represent prominent ampulla. Normal appearanceof parenchymal. ADRENAL GLANDS: No adrenal nodules. KIDNEYS: No hydronephrosis or stone. No solid mass. 4. Centimeter rightrenal cyst. 1.8 cm left renal cyst. Subcentimeter hypodensities ?in eachkidney, too small to characterize but likely present cysts. GI TRACT: Unchanged appearance of marked wall thickening of gastric antrumand pylorus. No gastric distention. A diverticulum first portion ofduodenum is again noted. Focal thickening at the ampulla. Colonicdiverticula. PERITONEUM AND RETROPERITONEUM: No free air or free fluid.LYMPH NODES: No lymphadenopathy is seen.2 PELVIS/BLADDER: The urinary bladder is partially distended. No wallthickening. The uterus is surgically absent. The right ovary is identified.The left ovary isnot visualized. No adnexal masses. VESSELS: No aortic aneurysm or critical stenosis. . BONES AND SOFT TISSUES: No aggressive osseous lesion. [facility], Radiant Results Inft User - 04/18/2020 5:40 PM CSTCT ABDOMEN PELVIS W CONTRAST 04/18/2020 4:44 PMHISTORY: Abdominal abscess/infection suspected Nausea/vomiting COMPARISON: CT abdomen pelvis 10/29/2018TECHNIQUE: Axial images of the abdomen and pelvis were acquired afteradministration of intravenous contrast. Coronal and sagittalreconstructions were also crea zena.FINDINGS:LOWER CHEST: Scattered right lower lobe tree-in-bud nodules, unchanged.HEPATOBILIARY: No hepatomegaly. 1.9 cm cyst in the left lobe. Otherscattered punctate hypodensities, too small to characterize but unchangedand likely represent cysts. Mildly dilated CBD measuring 0.9 cm at the pancreatic head and intrahepaticbile duct, unchanged and likely present reservoir phenomena related toprior cholecystectomy.SPLEEN: No splenomegaly.PANCREAS: The pancreatic duct is dilated measuring 0.5 cm at the level ofhead with smooth tapering at ampulla. There is lobulated thickening at theampulla, unchanged and may represent prominent ampulla. Normal appearanceof parenchymal.ADRENAL GLANDS: No adrenal nodules.KIDNEYS: No hydronephrosis or stone. No solid mass. 4. Centimeter rightrenal cyst. 1.8 cm leftrenal cyst. Subcentimeter hypodensities in eachkidney, too small to characterize but likely presentcysts. GI TRACT: Unchanged appearance of marked wall thickening of gastric antrumand pylorus. No gastric distention. A diverticulum first portion ofduodenum is again noted. Focal thickening at the ampulla. Colonicdiverticula.PERITONEUM AND RETROPERITONEUM: No free air or free fluid.LYMPH NODES: No lymphadenopathy is seen.2PELVIS/BLADDER: The urinary bladder is partially distended. No wallthickening. The uterus is surgically absent. The right ovary is identified.The left ovary is not visualized. No ad nexal masses.VESSELS: No aortic aneurysm or critical stenosis. .BONES AND SOFT TISSUES: No aggressive osseous lesion.IMPRESSIONSince 10/29/2018, unchanged marked thickening of gastric antrum and pyloruswhich may represent muscular hypertrophy or related to chronic ulcerdisease.Unchanged intra and extrahepatic biliary ductal dilatation likely relatedto prior cholecystectomy. However new pancreatic ductal dilatation. Nodularthickening of ampulla relatively unchanged and may represent hypertrophiedpapilla. Recommend correlation with clinical finding and blood test. Givenpancreatic ductal dilatation, an MRCP with contrast can be performed toevaluate pancreatic head and ampulla. Colonic diverticulosis.Renal and liver cysts.[facility]TH[facility]ULATING [id number] 23:07:00 Test Item Value Reference Range Interpretation Comments TSH (test code = See_Comment [Automated message] [id number]) The system [employer] generated this result transmitted ref erence range: 0.45 - 4 .70 mIU/L. The refe rence range was not u sed to interpret this result as normal/abnor mal. Lab Interpretation (test Normal code = 33460-9) [facility] HospitalTroponin [id number] 22:49:00 Test Item Value Reference Range Interpretation Comments TROPONIN I (test <0.012 See_Comment [Automated code = 3587603629) message] The system which generated this result transmitted reference range : <=0.034 ng/mL. The reference range was not used to interpr et this result as normal/abnormal . TANIYA (test code = Equal or Less than TANIYA) 0.034 ng/ml---Normal ?Note: Cardiac troponin begins to rise 3-4 hours after the onset of ischemia. Repeat in 4-6 hours if the sample was drawn within 3-4 hours of the onset of the symptom and found normal. Between 0.035 and 0.120 ng/mL--- Borderline. Questionable myocardial injury or necrosis ? ?Note: Serial measurement may be necessary to confirm or exclude the diagnosis of myocardial injury or necrosis; Clinical correlation (symptoms, EKGs, imaging studies, and others) required; Repeat in 4-6 hours if clinically indicated. ? Equal or Higher than 0.121 ng/mL---Abnormal. Myocardial Injury or Necrosis Likely ? Biotin has been reported to cause a negative bias, interpret results relative to patient's use of biotin. ? Lab Interpretation Normal (test code = 06643-8) [facility]N-[facility]MIN[facility] [id number] 22:45:00 Test Item Value Reference Range Interpretation Comments NT-proBNP (test code 159 pg/mL See_Comment H [Autom ated = 3210717486) message] The system which generated this result transmitted reference range : <=125. The reference range was not used to interpret this result as normal/abnormal . TANIYA (test code = TANIYA) Biotin has been reported to cause a negative bias, interpret results relative to patient's use of biotin. Lab Interpretation Abnormal (test code = 21953-1) [facility] HospitalBasi Metabolic Panel (NA, K, CL, CO2, GLUCOSE, BUN, CREATININE, CA)2020-04-18 22:37:00 Test Item Value Reference Range Interpretation Comments NA (test code = 141 mmol/L 135-145 3972482320) K (test code = 3.9 mmol/L 3.5-5 6333992364) CL (test code = 98 mmol/L 98-108 1926058705) CO2 TOTAL (test code = 35 mmol/L 23-31 H 5540589831) AGAP (test code = 2-16 8053929720) BUN (test code = 29 mg/dL 7-23 H 3430935078) GLUCOSE (test code = 115 mg/dL 70-110 H 1237837301) CREATININE (test code = 0.82 mg/dL 0.5-1.04 9244576713) CALCIUM (test code = 10.3 mg/dL 8.6-10.6 2136114752) eGFR Calculation mL/min/1.73m2 (Non-) (test code = 7884122966) eGFR Calculation mL/min/1.73m2 () (test code = 8677103961) TANIYA (test code = TANIYA) Association of Glomerular Filtration Rate (GFR) and Staging of Kidney Disease* + --+ --+ ------+| GFR (mL/min/1.73 m2) ?| With Kidney Damage ?| ?Without Kidney Damage+ --------+ --------+ +| ?>90 ?| ?Stage one ?| ? Normal ?+ ---+ ---+ -------+| ?60-89 ?| ?Stage two ?| ? Decreased GFR ? + --+ --+ ------+| ?30-59 ?| ?Stage three ?| ? Stage three ? + --+ --+ ------+| ?15-29 ?| ?Stage four ? | ? Stage four ?+ ---+ ---+ -------+| ?<15 (or dialysis) ? ?| ?Stage five ? | ? Stage five ?+ ---+ ---+ -------+ *Each stage assumes the associated GFR level has been in effect for at least three months. ?Stages 1 to 5, with or without kidney disease, indicate chronic kidney disease. Notes: Determination of stages one and two (with eGFR >59mL/min/1.73 m2) requires estimation of kidney damage for at least three months as defined by structural or functional abnormalities of the kidney, manifested by either:Pathological abnormalities or Markers of kidney damage (including abnormalities in the composition of the blood or urine or abnormalities in imaging tests). Lab Interpretation Abnormal (test code = 70019-4) [facility] HospitalHepatic Function Panel (ALB, T.PRO, BILI T, BU/BC, ALT, AST, ALK PHOS)2020-04-18 22:37:00 Test Item Value Reference Range Interpretation Comments TOTAL BILI (test code = 1753373146) 0.4 mg/dL 0.1-1.1 BILI UNCON (test code = 6384611665) 0.3 mg/dL 0.1-1.1 BILI CONJ (test code = 7546635345) 0.0 mg/dL 0-0.3 T PROTEIN (test code = 8505495887) 7.7 g/dL 6.3-8.2 ALBUMIN (test code = 7981856116) 4.4 g/dL 3.5-5 ALK PHOS (test code = 2431461825) 85 U/L 34-122 ALTv (test code = 1742-6) 11 U/L 5-35 AST(SGOT) (test code = 0978126310) 24 U/L 13-40 Lab Interpretation (test code = Normal 36909-3) [facility] HospitalLipase [id number] 22:37:00 Test Item Value Reference Range Interpretation Comments LIPASE (test code = 7693165433) 63 U/L 0-220 Lab Interpretation (test code = Normal 51260-3) [facility] HospitalCBC with [id number] 22:28:00 Test Item Value Reference Range Interpretation Comments WBC (test code = See_Comment H [Automated 9337-2) message] The sy stem which generated this result transmitted reference range : 4.30 - 11.10 10*3/?L. The reference range was not used to interpret this result as normal/abnormal . RBC (test code = See_Comment [Automated 526-8) message] The sy stem which generated this result transmitted reference range : 3.93 - 5.25 10*6/?L. The reference range was not used to interpret this result as normal/abnormal . HGB (test code = 14.9 g/dL 11.6-15 718-7) HCT (test code = 44.1 % 35.7-45.2 4544-3) MCV (test code = 95.2 fL 80.6-95.5 787-2) MCH (test code = 32.2 pg 25.9-32.8 785-6) MCHC (test code = 33.8 g/dL 31.6-35.1 786-4) RDW-SD (test code = 44.0 fL 39-49.9 13582-8) RDW-CV (test code = 12.7 % 12-15.5 788-0) PLT (test code = See_Comment [Automated 777-3) message] The sy stem which generated this result transmitted reference range : 166 - 358 10*3/ ?L. The reference r kajal was not used to interpret this result as normal/abnormal . MPV (test code = 10.3 fL 9.5-12.9 11739-5) NRBC/100 WBC (test See_Comment [Automat ed code = 0924724206) message] The system which generated this result transmitted reference range : 0.0 - 10.0 /100 WBCs. The refer ence range was not u sed to interpret th is result as normal/abnormal . NRBC x10^3 (test code <0.01 See_Comment [Auto mated = 0143839218) message] The s ystem which generated this result transmitted reference range : 10*3/?L. The reference range was not used to interpret this result as normal/abnormal . GRAN MAT (NEUT) % 62.1 % (test code = 770-8) IMM GRAN % (test code 0.10 % = 4503459681) LYMPH % (test code = 25.7 % 736-9) MONO % (test code = 9.0 % 5905-5) EOS % (test code = 2.5 % 713-8) BASO % (test code = 0.6 % 706-2) GRAN MAT x10^3(ANC) 7.00 10*3/uL 1.88-7.09 (test code = 7306730196) IMM GRAN x10^3 (test <0.03 0-0.06 code = 6610739955) LYMPH x10^3 (test code 2.90 10*3/uL 1.32-3.29 = 731-0) MONO x10^3 (test code 1.02 10*3/uL 0.33-0.92 H = 742-7) EOS x10^3 (test code = 0.28 10*3/uL 0.03-0.39 711-2) BASO x10^3 (test code 0.07 10*3/uL 0.01-0.07 = 704-7) Lab Interpretation Abnormal (test code = 40953-9) [facility] HospitalURINALYSIS2019-08-14 19:25:00 Test Item Value Reference Range Interpretation Comments APPEARANCE (test code Slightly Cloudy Clear A = 1850872522) COLOR (test code = Yellow Yellow 0135398907) PH (test code = 4.8-8.0 9399440940) SP GRAVITY (test code 1.003-1.030 = 8392210106) GLU U QUAL (test code Negative Negative = 6159770958) BLOOD (test code = Moderate Negative A 7666564511) KETONES (test code = 15 mg/dL Negative A 0284161640) PROTEIN (test code = Negative Negative 2887-8) UROBILIN (test code = 0.2 mg/dL See_Comment [Auto mated 9519954462) message] The system which generated this result transmit zena reference range : 0-1.0 mg/dL. Th e reference range was not used to interpret this result as normal/abnormal . BILIRUBIN (test code Negative Negative = 9966373320) NITRITE (test code = Negative Negative 3849015491) LEUK CHARLENE (test code Negative Negative = 4382337121) RBC/HPF (test code = See_Comment [Autom ated 2160002373) message] The system which generated this result transmit zena reference range : 0 - 3 HPF. The reference range was not used to interpret this result as normal/abnormal . WBC/HPF (test code = See_Comment [Autom ated 9460665052) message] The system which generated this result transmit zena reference range : 0 - 5 HPF. The reference range was not used to interpret this result as normal/abnormal . BACTERIA (test code = Few Negative A 2114569343) SQ EPITH (test code = HPF 5778111669) Lab Interpretation Abnormal (test code = 37079-6) [facility] HospitalCT ABDOMEN PELVIS W [id number] 18:19:19CT Abdomen and Pelvis with intravenous contrast. CLINICAL HISTORY: Acute generalized abdominal pain.DOSE: Up-to-date CT equipment and radiation dose reduction techniques wereemployed. CTDIvol: 4.57 mGy. DLP: 205 mGy-cm. TECHNIQUE : Contiguous axial imaging from the level of the lung basesthrough the pubic symphysis was performed after the uncomplicatedadministration of Omnipaque contrast material. Coronal and sagittalreconstructions wereobtained. Auto mA and/or iterative reconstruction were used toreduceradiation dose. FINDINGS:? Lower lungs: Clear. No pleural effusion or pericardial effusion. Shortsliding hiatal hernia suspected. Liver, Gallbladder and Spleen: Liver is 15.5 cm in length and spleenmeasures approximately 9.3 x 3.8 cm. 2 cm low-density lesion in the leftlobe, consistent with hepatic cyst (segment #3). S/P cholecystectomy. Mildgeneralized dilatation of intrahepatic as well as extrahepatic biliaryducts with common bile duct 9 to 10 mm in diameter. Pancreatic duct is notdilated. Pe ritoneum:?No free air or free fluid. Subcentimeter lymph node is seenadjacent to the lower esophagus. Pancreas and Adrenals:?Unremarkablepancreas and adrenal glands. Minimal hyperenhancement noted in the uncinateprocess region. Kidneys and Ureters:?No visible calculi in the renal collecting systems. No hydroureter or hydronephrosis. Multiple low-density lesions are detectedin both kidneys, largest of4.1 cm size in the lateral surface of themidportion of the right kidney and largest 2 cm sized lesion in the lateralsurface of the left kidney. No definite kidney stones visualized. Vessels: Mild atherosclerosis. No abdominal aortic aneurysm. Retroperitoneum: No abnormal fluid or lymphadenopathy. Bowel: Marked submucosal and central edema noted surrounding the pylorusand antrum of the stomach and there is slightly intense mucosal enhancementnoted in the duodenum.Diverticulosis of the sigmoid and descending appendix is not visualized,however, no signs of acute appendicitis is detected. Colon noted withoutany signs of acute diverticulitis. Bladder and Reproductive Organs: No gross pathology in the unopacifiedurinary bladder. Hysterectomy noted. No free fluid in the pelvis. Bones: Lumbar levoscoliosis with multilevel degenerative disc disease, moresevere at L1-L2. Bilateral mild hip joint arthritis. Soft tissues: Unremarkable. CONCLUSION:1. Marked edema noted in the wall of the distal antrum and pylorus withslightly intense enhancement of the mucosal lining. Findings are suspiciousfor peptic disease.2. S/P cholecystectomy. Generalized dilatation of the biliary ducts noted.3. Cystic lesion in theleft lobe and numerous cystic lesions in bothkidneys.4. S/P hysterectomy.5. Diverticulosis of the sigmoid and descending colon noted without anyacute changes of diverticulitis. Note: Above report is self-edited and computer generated errors may beoverlooked. Therefore, if you notice an error, I request you to bring it rosenda attention KHANH. [facility], Radiant Results Inft User - 10/29/2018 1:21 PM CDTCT Abdomen and Pelvis with intravenous contrast.CLINICAL HISTORY: Acute generalized abdominal pain.DOSE: Up-to-date CT equipment and radiation dose reduction techniques wereemployed. CTDIvol: 4.57 mGy. DLP: 205 mGy-cm.TECHNIQUE : Contiguous axial imaging from the level of the lung basesthrough the pubicsymphysis was performed after the uncomplicatedadministration of Omnipaque contrast material. Coronal and sagittalreconstructions wereobtained. Auto mA and/or iterative reconstruction were used to reduceradiation dose.FINDINGS: Lower lungs: Clear. No pleural effusion or pericardial effusion. Shortsliding hiatal hernia suspected.Liver, Gallbladder and Spleen: Liver is 15.5 cm in length and spleenmeasures approximately 9.3 x 3.8 cm. 2 cm low-density lesion in the leftlobe, consistent with hepatic cyst (segment #3). S/P cholecystectomy. Mildgeneralized dilatation of intrahepatic as well as extrahepatic biliaryducts with common bile duct 9 to 10 mm in diameter. Pancreatic duct is notdilated.Peritoneum: No free air or free fluid. Subcentimeter lymph node is seenadjacent to the lower esophagus. Pancreas and Adrenals: Unremarkablepancreas and adrenal glands. Minimal hyperenhancement noted in the uncinateprocess region.Kidneys and Ureters: No visible calculi in the renal collecting systems. No hydroureter or hydronephrosis. Multiple low-density lesions are detectedin both kidneys, largest of 4.1 cm size in the lateral surface of themidportion of the right kidney and largest 2 cm sized lesion in the lateralsurface of the left kidney. No definite kidney stones visualized. Vessels: Mild atherosclerosis. No abdominal aortic aneurysm.Retroperitoneum: No abnormal fluid or lymphadenopathy.Bowel: Marked submucosal and central edema noted surrounding the pylorusand antrum of the stomach and there is slightly intense mucosal enhancementnoted in the duodenum.Diverticulosis of the sigmoid and descending a ppendix is not visualized,however, no signs of acute appendicitis is detected. Colon noted withoutany signs of acute diverticulitis.Bladder and Reproductive Organs: No gross pathology in the unopacifiedurinary bladder. Hysterectomy noted. No free fluid in the pelvis.Bones: Lumbar levoscoliosis with multilevel degenerative disc disease, moresevere at L1-L2. Bilateral mild hip joint arthritis.Soft tissues: Unremarkable.CONCLUSION:1. Marked edema noted in the wall of the distal antrum and pylorus withslightly intense enhancement of the mucosal lining. Findings are suspiciousfor peptic disease.2. S/P ch olecystectomy. Generalized dilatation of the biliary ducts noted.3. Cystic lesion in the left lobe and numerous cystic lesions in bothkidneys.4. S/P hysterectomy.5. Diverticulosis of the sigmoid and descending colon noted without anyacute changes of diverticulitis.Note: Above report is self-edited andcomputer generated errors may beoverlooked. Therefore, if you notice an error, I request you to bring it rosenda attention KHANH.[facility]. METABOLIC PANEL (33449)2018-10-29 17:20:00 Test Item Value Reference Range Interpretation Comments NA (test code = 143 mmol/L 135-145 0894681126) K (test code = 3.4 mmol/L 3.5-5 L 2120484279) CL (test code = 106 mmol/L 98-108 9538634869) CO2 TOTAL (test code = 22 mmol/L 23-31 L 9203184617) AGAP (test code = 2-16 8328570737) BUN (test code = 19 mg/dL 7-23 3385969769) GLUCOSE (test code = 93 mg/dL 70-110 3002965862) CREATININE (test code = 0.68 mg/dL 0.5-1.04 6333612276) TOTAL BILI (test code = 0.3 mg/dL 0.1-1.0 0090528851) CALCIUM (test code = 9.5 mg/dL 8.6-10.6 5085615663) T PROTEIN (test code = 7.5 g/dL 6.3-8.2 6141108457) ALBUMIN (test code = 4.3 g/dL 3.5-5 4576058365) ALK PHOS (test code = 88 U/L 34-122 5210120656) ALT(SGPT) (test code = 12 U/L 9-51 8148926023) AST(SGOT) (test code = 21 U/L 13-40 4330618979) eGFR Calculation mL/min/1.73m2 (Non-) (test code = 7729952631) eGFR Calculation mL/min/1.73m2 () (test code = 9824516922) TANIYA (test code = TANIYA) Association of Glomerular Filtration Rate (GFR) and Staging of Kidney Disease*+ + + +| GFR (mL/min/1.73 m2)?| With Kidney Damage?|?Without Kidney Damage+ --------+ --------+ +|?>90?|?S tage one?|? Normal?+ ---------+ ---------+ +|?60-89? |?Stage two?|? Decreased GFR? + --+ --+ ------+|?30-59?|?Stage three?|? Stage three? + --+ --+ ------+|?15-29?|?Stage four? |? Stage four?+ -------+ -------+ +|?<15 (or dialysis)?|?Stage five? |? Stage five?+ -------+ -------+ +*Each stage assumes the associated GFR level has been in effect for at least three months.?Stages 1 to 5, with or without kidney disease, indicate chronic kidney disease.Notes: Determination of stages one and two (with eGFR >59mL/min/1.73 m2) requires estimation of kidney damage for at least three months as defined by structural or functional abnormalities of the kidney, manifested by either:Pathological abnormalities or Markers of kidney damage (including abnormalities in the composition of the blood or urine or abnormalities in imaging tests). Lab Interpretation Abnormal (test code = 17639-5) [facility] WITH [id number] 17:00:00 Test Item Value Reference Range Interpretation Comments WBC (test code = See_Comment H [Automated 6690-2) message] The sy stem which generated this result transmitted reference range : 4.30 - 11.10 10*3/?L. The reference range was not used to interpret this result as normal/abnormal . RBC (test code = See_Comment [Automated 789-8) message] The sy stem which generated this result transmitted reference range : 3.93 - 5.25 10*6/?L. The reference range was not used to interpret this result as normal/abnormal . HGB (test code = 13.4 g/dL 11.6-15 718-7) HCT (test code = 39.6 % 35.7-45.2 4544-3) MCV (test code = 93.4 fL 80.6-95.5 787-2) MCH (test code = 31.6 pg 25.9-32.8 785-6) MCHC (test code = 33.8 g/dL 31.6-35.1 786-4) RDW-SD (test code = 46.2 fL 39-49.9 49446-4) RDW-CV (test code = 13.6 % 12-15.5 788-0) PLT (test code = See_Comment [Automated 777-3) message] The sy stem which generated this result transmitted reference range : 166 - 358 10*3/ ?L. The reference r kajal was not used to interpret this result as normal/abnormal . MPV (test code = 10.1 fL 9.5-12.9 30689-3) NRBC/100 WBC (test See_Comment [Automat ed code = 4193060932) message] The system which generated this result transmitted reference range : 0.0 - 10.0 /100 WBCs. The refer ence range was not u sed to interpret th is result as normal/abnormal . NRBC x10^3 (test code <0.01 See_Comment [Auto mated = 1976038020) message] The s ystem which generated this result transmitted reference range : 10*3/?L. The reference range was not used to interpret this result as normal/abnormal . GRAN MAT (NEUT) % 75.8 % (test code = 770-8) IMM GRAN % (test code 0.60 % = 9935642812) LYMPH % (test code = 17.0 % 736-9) MONO % (test code = 5.9 % 5905-5) EOS % (test code = 0.2 % 713-8) BASO % (test code = 0.5 % 706-2) GRAN MAT x10^3(ANC) 8.68 10*3/uL 1.88-7.09 H (test code = 5622106880) IMM GRAN x10^3 (test 0.07 10*3/uL 0-0.06 H code = 1637742327) LYMPH x10^3 (test code 1.94 10*3/uL 1.32-3.29 = 731-0) MONO x10^3 (test code 0.67 10*3/uL 0.33-0.92 = 742-7) EOS x10^3 (test code = <0.03 0.03-0.39 L 711-2) BASO x10^3 (test code 0.06 10*3/uL 0.01-0.07 = 704-7) Lab Interpretation Abnormal (test code = 13153-0) [facility]
[2021-04-01 17:53] LABS: Hematocrit 38.9 % (36.0-45.0); Lymphocytes % 29.4 % (15.3-44.8); MPV 8.9 fL (7.6-11.3)
[2021-04-01 17:54] LABS: Protime INR 0.97
[2021-04-01 18:09] LABS: Troponin High Sensitivity 6.7 pg/mL (<58.9)
[2021-04-01 18:23] LABS: Potassium 3.5 mmol/L (3.5-5.1)
[2021-04-01] MEDS ORDERED: MORPHINE 4 MG/ML SYR ONE (18:51)
[2021-04-01] MEDS ORDERED: ONDANSETRON 4 MG/2 ML VIAL ONE (20:02)
--- NOTE | 2021-04-01 21:57 | RAD REPORT ---
EXAM DESCRIPTION: RAD - Chest Single View - 04/01/2021 9:49 pm CLINICAL HISTORY: chest pain COMPARISON: No comparisons FINDINGS: Lines: None. Lungs: No evidence of edema or pneumonia. Pleural: No significant pleural effusions or pneumothorax. Cardiac: The heart size is within normal limits. Bones: No acute fractures. ACDF in the cervical spine. Other: IMPRESSION: No acute cardiopulmonary disease.
--- NOTE | 2021-04-01 22:46 | ER ---
Nurse's Notes [facility] Name: Zaid Travis Age: 75 yrs Sex: Female : 1945 Arrival Date: 04/01/2021 Time: 17:18 Bed 8 Private MD: Diagnosis: Angina pectoris, unspecified Presentation: 04/01 18:00 Acuity: SANJAY 3 iw Assessment: 23:15 General: pt c/o headache, provider notified, pt admitted to having suicidal ideation as6 and attempted to commit suicide yesterday by taking all of her prescribed medications. pt voices desire to seek help, pt says she has lost lots of family members over recent years and has been feeling very lonely . Vital Signs: 21:40 BP 122 / 57; Pulse 63; Resp 16 S; Pulse Ox 95% on R/A; as6 ED Course: 17:18 Patient arrived in ED. eb 20:45 Ranjith Ceja PA is PHCP. cp 20:45 Joseph Willingham MD is Attending Physician. cp 20:54 Myles Herbert, PIERRE is Primary Nurse. as6 22:41 Brad Mancilla PA is Hospitalizing Provider. cp 04/02 07:37 Triage completed. iw Administered Medications: 04/01 21:23 Drug: morphine 4 mg Route: IVP; Site: right antecubital; as6 21:24 Follow up: Response: No adverse reaction; RASS: Alert and Calm (0) as6 21:23 Drug: Zofran (Ondansetron) 4 mg Route: IVP; Site: right antecubital; as6 21:24 Follow up: Response: No adverse reaction as6 21:23 Drug: NS 0.9% 500 ml Route: IV; Rate: 100 ml/hr; Site: right antecubital; as6 21:24 Follow up: Response: No adverse reaction; IV Status: Completed infusion; IV Intake: as6 500ml 04/02 01:04 Not Given (Patient Refused): Tylenol 1000 mg PO once as6 01:11 Drug: Ativan (LORazepam) 1 mg Route: IVP; Site: right antecubital; as6 Intake: 04/01 21:24 IV: 500ml; Total: 500ml. as6 Outcome: 22:41 Decision to Hospitalize by Provider. cp 04/02 11:39 Patient left the ED. jd3 Signatures: Theresa Flores, RN RN Ranjith Smith PA PA cp Davies, Jonathon, RN RN jd3 Neva Rees Ashby RN RN as6
--- NOTE | 2021-04-01 22:46 | EDPHYS ---
Physician Documentation [facility] Name: Zaid Cresco Age: 75 yrs Sex: Female : 1945 Arrival Date: 04/01/2021 Time: 17:18 Bed 8 Private MD: ED Physician Joseph Willingham HPI: 04/01 21:00 This 75 yrs old Female presents to ER via Unassigned with complaints of Chest Pain. cp 21:00 The patient or guardian reports chest pain that is located primarily in the substernal cp area. 21:00 Onset: today. The pain does not radiate. Associated signs and symptoms: Pertinent cp positives: nausea, headache. 21:00 The chest pain is described as aching. Duration: The patient or guardian reports cp multiple episodes, that wax and wane. 21:00 Modifying factors: the symptoms are aggravated by activity. cp ROS: 21:15 Cardiovascular: Positive for chest pain, Negative for edema, palpitations. cp 21:15 Respiratory: Negative for cough, shortness of breath, wheezing. cp 21:15 Abdomen/GI: Positive for nausea, Negative for abdominal pain, vomiting, diarrhea, constipation. 21:15 Constitutional: Negative for body aches, chills, fever, poor PO intake. cp 21:15 ENT: Negative for ear pain, sore throat, difficulty swallowing, difficulty handling cp secretions. 21:15 Back: Negative for radiated pain. 21:15 Neuro: Positive for headache, Negative for altered mental status, dizziness, syncope, weakness. 21:15 All other systems are negative. Exam: 21:20 Constitutional: The patient appears in no acute distress, alert, awake, cp non-diaphoretic, non-toxic, well developed, well nourished. 21:20 Head/Face: Normocephalic, atraumatic. cp 21:20 Eyes: Periorbital structures: appear normal, Pupils: equal, round, and reactive to light and accomodation, Extraocular movements: intact throughout, Conjunctiva: normal, no exudate, no injection, Sclera: no appreciated abnormality, Lids and lashes: appear normal, bilaterally. 21:20 ENT: External ear(s): are unremarkable, Nose: is normal, Mouth: Lips: moist, Oral mucosa: moist, Posterior pharynx: Airway: no evidence of obstruction, patent. 21:20 Neck: ROM/movement: is normal, is supple, without pain, no range of motions limitations, no nuchal rigidity. 21:20 Chest/axilla: Inspection: normal. 21:20 Cardiovascular: Rate: normal, Rhythm: regular, Edema: is not appreciated, JVD: is not appreciated. 21:20 Respiratory: the patient does not display signs of respiratory distress, Respirations: normal, no use of accessory muscles, no retractions, labored breathing, is not present, Breath sounds: are clear throughout, no decreased breath sounds, no stridor, no wheezing. 21:20 Abdomen/GI: Inspection: abdomen appears normal, Palpation: abdomen is soft and non-tender, in all quadrants. 21:20 Back: CVA tenderness, is absent, vertebral tenderness, is not appreciated. 21:20 Neuro: Orientation: to person, place \\T\\ time. Mentation: is normal, Motor: moves all fours, strength is normal, Sensation: is normal. Vital Signs: 21:40 BP 122 / 57; Pulse 63; Resp 16 S; Pulse Ox 95% on R/A; as6 MDM: 20:47 Patient medically screened. cp 21:00 Differential diagnosis: acute myocardial infarction, pericarditis, pleurisy, pneumonia, cp pneumothorax, unstable angina. 22:40 Data reviewed: vital signs, nurses notes, and as a result, I will admit patient. cp 22:40 Physician consultation: Brad KELLEY was contacted at 22:40, regarding admission, to the telemetry unit. 04/01 20:48 Order name: Basic Metabolic Panel cp 04/01 20:48 Order name: CBC with Diff cp 04/01 20:48 Order name: LFT's cp 04/01 20:48 Order name: Magnesium cp 04/01 20:48 Order name: NT PRO-BNP cp 04/01 20:48 Order name: PT-INR cp 04/01 20:48 Order name: Troponin HS cp 04/01 22:35 Order name: COVID-19 SARS RT PCR (Document "Date of Onset" if Symptomatic) cp 04/01 22:40 Order name: Basic Metabolic Panel EDMS 04/01 22:40 Order name: CBC with Automated Diff EDMS 04/01 22:40 Order name: Protime (+INR) EDMS 04/01 22:40 Order name: Troponin High Sensitivity EDMS 04/02 00:27 Order name: SARS-COV-2 RT PCR; Complete Time: 00:35 EDMS 04/01 20:48 Order name: XRAY Chest (1 view) cp 04/01 20:48 Order name: CT Head Brain wo Cont cp 04/01 22:40 Order name: Chest Single View; Complete Time: 00:35 EDMS 04/02 03:47 Order name: CBC with Automated Diff EDMS 04/02 04:12 Order name: Comprehensive Metabolic Panel EDMS 04/02 04:12 Order name: Phosphorus EDMS 04/02 04:12 Order name: Troponin High Sensitivity EDMS 04/02 04:12 Order name: Lipid Profile EDMS 04/02 04:12 Order name: T4 Free EDMS 04/02 04:12 Order name: Magnesium EDMS 04/02 04:12 Order name: Thyroid Stimulating Hormone EDMS 04/02 08:00 Order name: Troponin High Sensitivity EDMS 04/01 20:48 Order name: EKG; Complete Time: 05:18 cp 04/01 20:48 Order name: Cardiac monitoring; Complete Time: 21:23 cp 04/01 20:48 Order name: EKG - Nurse/Tech; Complete Time: 21:23 cp 04/01 20:48 Order name: IV Saline Lock; Complete Time: 21:23 cp 04/01 20:48 Order name: Labs collected and sent; Complete Time: 21:23 cp 04/01 20:48 Order name: O2 Per Protocol; Complete Time: 21:23 cp 04/01 20:48 Order name: O2 Sat Monitoring; Complete Time: 21:23 cp Administered Medications: 21:23 Drug: morphine 4 mg Route: IVP; Site: right antecubital; as6 21:24 Follow up: Response: No adverse reaction; RASS: Alert and Calm (0) as6 21:23 Drug: Zofran (Ondansetron) 4 mg Route: IVP; Site: right antecubital; as6 21:24 Follow up: Response: No adverse reaction as6 21:23 Drug: NS 0.9% 500 ml Route: IV; Rate: 100 ml/hr; Site: right antecubital; as6 21:24 Follow up: Response: No adverse reaction; IV Status: Completed infusion; IV Intake: as6 500ml 04/02 01:04 Not Given (Patient Refused): Tylenol 1000 mg PO once as6 01:11 Drug: Ativan (LORazepam) 1 mg Route: IVP; Site: right antecubital; as6 Disposition: 04/01 23:00 Chart complete. cp 04/03 01:57 Co-signature as Attending Physician, Joseph Willingham MD. [email or web address] Disposition Summary: 04/01/21 22:41 Hospitalization Ordered Hospitalization Status: Observation cp Provider: Brad Mancilla cp Condition: Stable cp Problem: new cp Symptoms: have improved cp Bed/Room Type: Standard cp Location: [facility] ER HOLD(04/02/21 00:36) mw Room Assignment: ERHOLD-(04/02/21 00:36) mw Diagnosis - Angina pectoris, unspecified cp Forms: - Medication Reconciliation Form cp - SBAR form cp Signatures: Dispatcher [employer] EDMS Danette Tomlinson RN RN Ranjith Ceja PA PA cp Joseph Willingham MD MD [email or web address] Myles Herbert RN RN as6 Corrections: (The following items were deleted from the chart) 04/01 22:40 22:40 Troponin High Sensitivity ordered. EDSD EDSD 04/02 00:36 04/01 22:41 Telemetry/MedSurg (observation) [facility] 04/02 00:36 04/01 22:41 cp mw
--- NOTE | 2021-04-02 00:20 | P.HP ---
Certification for Inpatient Patient admitted to: Inpatient With expected LOS: <2 Midnights Patient will require the following post-hospital care: None Practitioner: I am a practitioner with admitting privileges, knowledge of patient current condition, hospital course, and medical plan of care. Services: Services provided to patient in accordance with Admission requirements found in Title 42 Section 412.3 of the Code of Federal Regulations <Brad Mancilla - Last Filed: 04/02/21 00:29> Patient History Date of Service: 04/01/21 Primary Care Provider: Alejandro Reason for admission: chest pain History of Present Illness: Ms. Travis is a 75 yo F with HTN and COPD who presents with an episode of 10/10 left sided chest pain beginning at rest and lasting for hours. She says she felt like someone was walking on her chest. She also reports headache. She says she was recently in a cardiac hospital in [place] for blood pressure management and was told to follow up wither her packaging technician for a stress test. She became tearful during conversation, and says she has been feeling sad lately. She endorses suicidal ideation. She says she has never previously attempted, but today she wanted to take all of her pills. She slept for most of the day. She says she does not think her Lexapro is at the correct dose. She says she was in an inpatient psychiatry unit in the 80s when she was going through a divorce. She currently lives with her granddaughter, but says she is moving out. She mentions that she wants to talk to APS and a social sciences instructor but will not elaborate further. - Past Medical/Surgical History Diabetic: No -: Anxiety -: Neuropathy -: "ulcers blocking pancreas" -: HTN -: COPD -: depression -: Cholecystectomy -: appy -: hysterectomy -: hip surgery -: bladder lift - Family History Mother -: Hypertension, Lung disease Notes: per pt report Father -: Hypertension, Lung disease Notes: per pt report - Social History Smoking Status: Current every day smoker Alcohol use: No CD- Drugs: No Caffeine use: Yes Place of Residence: Home <Brad Mancilla - Last Filed: 04/02/21 00:29> Date of Service: 04/01/21 <Janet Tran - Last Filed: 04/03/21 01:26> Allergies acetaminophen [From Tylenol-Codeine #3] Allergy (Verified 07/18/20 10:44) Hives codeine [From Tylenol-Codeine #3] Allergy (Verified 07/18/20 10:44) Hives Home Medications: Escitalopram [Lexapro*] 20 mg PO DAILY 07/17/20 Gabapentin 600 mg PO BID 07/17/20 Ensure Enlive 237 ml PO BID #60 can 07/25/20 Melatonin 10 mg PO BEDTIME PRN PRN #30 tablet 07/25/20 Pantoprazole [Protonix Tab*] 40 mg PO BIDAC #60 tab 07/25/20 Rivaroxaban [Xarelto*] 10 mg PO DAILY #14 tablet 07/25/20 Atorvastatin Calcium [Lipitor] 40 mg PO BEDTIME #30 tab 04/02/21 Hydrocodone 5/APAP 325 [[place] 5/325*] 1 tab PO Q6HP PRN #20 tab 04/02/21 Metoprolol Tartrate [Lopressor*] 12.5 mg PO BID 6AM 6PM #60 tab 04/02/21 Ondansetron HCl 4 mg PO Q6HP PRN #30 tablet 04/02/21 predniSONE [Prednisone] 20 mg PO BID #10 tablet 04/02/21 Review of Systems 10-point ROS is otherwise unremarkable General: Unremarkable Eyes: Unremarkable ENT: Unremarkable Respiratory: Unremarkable Cardiovascular: Chest Pain Gastrointestinal: Unremarkable Genitourinary: Unremarkable Musculoskeletal: Unremarkable Integumentary: Unremarkable Neurological: Unremarkable Lymphatics: Unremarkable <Brad Mancilla Fiona - Last Filed: 04/02/21 00:29> Physical Examination - Physical Exam General: Alert, In no apparent distress HEENT: Atraumatic, PERRLA, Mucous membr. moist/pink, EOMI, Sclerae nonicteric Neck: Supple, 2+ carotid pulse no bruit, No LAD, Without JVD or thyroid abnormality Respiratory: Diminished Cardiovascular: Regular rate/rhythm, Normal S1 S2 Gastrointestinal: Normal bowel sounds, No tenderness Musculoskeletal: No tenderness Integumentary: No rashes Neurological: Normal speech, Normal strength at 5/5 x4 extr, Normal tone, Abnormal affect (tearful) Lymphatics: No axilla or inguinal lymphadenopathy - Studies Laboratory Data (last 24 hrs) 04/01/21 17:40: Sodium 144, Potassium 3.5, BUN 16, Creatinine 0.79, Glucose 101 04/01/21 17:40: PT 11.1, INR 0.97 04/01/21 17:40: WBC 6.80, Hgb 12.8, Hct 38.9, Plt Count 161 <Brad Mancilla - Last Filed: 04/02/21 00:29> - Studies Laboratory Data (last 24 hrs) 04/01/21 20:48: PT Cancelled, INR Cancelled 04/01/21 20:48: WBC Cancelled, Hgb Cancelled, Hct Cancelled, Plt Count Cancelled 04/01/21 20:48: Sodium Cancelled, Potassium Cancelled, BUN Cancelled, Creatinine Cancelled, Glucose Cancelled, Magnesium Cancelled, Total Bilirubin Cancelled, AST Cancelled, ALT Cancelled, Alkaline Phosphatase Cancelled <Janet Tran - Last Filed: 04/03/21 01:26> Assessment and Plan - Problems (Diagnosis) (1) Chest pain Status: Acute Qualifiers: Chest pain type: unspecified Qualified Code(s): R07.9 - Chest pain, unspecified (2) HTN (hypertension) Status: Chronic Qualifiers: Hypertension type: primary hypertension Qualified Code(s): I10 - Essential (primary) hypertension (3) COPD (chronic obstructive pulmonary disease) Status: Chronic Qualifiers: COPD type: unspecified COPD Qualified Code(s): J44.9 - Chronic obstructive pulmonary disease, unspecified (4) Depression Status: Chronic Qualifiers: Depression Type: major depressive disorder Major depression recurrence: single episode Active/Remission status: currently active Major depression episode severity: severe Psychotic features: without psychotic features Qualified Code(s): F32.2 - Major depressive disorder, single episode, severe without psychotic features - Plan cardiology consulted trend troponins, repeat EKG daily aspirin, beta zana, statin PRN morphine and nitroglycerin reconcile and continue home medications suicide precautions social work consulted DVT ppx Discharge Plan: Psychiatry Plan to discharge in: 48 Hours - Advance Directives Does patient have a Living Will: No Does patient have a Durable POA for Healthcare: No - Code Status/Comfort Care Code Status Assessed: Yes (full code) Critical Care: No Time Spent Managing Pts Care (In Minutes): 70 <Brad Mancilla - Last Filed: 04/02/21 00:29> Date of Service: 04/01/21 Subjective: Agree with the HPI as mentioned above Physical Examination: Vitals: Afebrile vital signs are stable Physical exam: Cardiovascular: Within normal limits. Lungs: Within normal limits Abdomen: Within normal limits Neuro: Awake, alert, oriented to person place and time Assessment: 1. Chest pain rule out acute coronary syndrome Plan: 1. Continue with current plan of care as mentioned above <Janet Tran - Last Filed: 04/03/21 01:26>
[2021-04-02] MEDS ORDERED: IBUPROFEN 400 MG TAB PO PRN (00:57)
[2021-04-02] MEDS ORDERED: NITROGLYCERIN 0.4 MG/TAB SL PRN (00:57)
[2021-04-02] MEDS ORDERED: ONDANSETRON 4 MG/2 ML VIAL IV PRN (00:57)
[2021-04-02] MEDS ORDERED: MORPHINE 2 MG/ML SYR IV PRN (00:57)
[2021-04-02] MEDS ORDERED: LORazepam 2 MG/ML VIAL ONE (01:07)
[2021-04-02 01:33] VITALS: BMI 23.3
[2021-04-02 03:46] LABS: Absolute Lymphocytes (CBC) 2.4 K/uL (0.7-4.9); Hematocrit 35.7 % (36.0-45.0); Lymphocytes % 36.4 % (15.3-44.8); MPV 9.2 fL (7.6-11.3); RBC Red Blood Cell Count 3.79 M/uL (3.86-4.86)
[2021-04-02 04:12] LABS: Albumin 2.9 g/dL (3.4-5.0); Bilirubin Total 0.4 mg/dL (0.2-1.0); Magnesium 2.1 mg/dL (1.8-2.4); Phosphorus 3.4 mg/dL (2.5-4.9); Potassium 3.4 mmol/L (3.5-5.1); Protein, Total 6.3 g/dL (6.4-8.2); Thyroid Stimulating Hormone 2.93 uIU/mL (0.360-3.740); Troponin High Sensitivity 8.1 pg/mL (<58.9)
[2021-04-02 05:18] VITALS: BP 100/48
[2021-04-02] MEDS ORDERED: METOPROLOL TAR 25 MG TAB PO SCH (06:00)
[2021-04-02] MEDS ORDERED: HYDROCORTISONE SUC 100 MG INJ IV ONE (08:33)
[2021-04-02] MEDS ORDERED: MORPHINE 2 MG/ML SYR IV ONE (08:33)
[2021-04-02] MEDS ORDERED: ENOXAPARIN 40 MG/0.4 ML SQ SCH (09:00)
[2021-04-02] MEDS ORDERED: ESCITALOPRAM 20 MG TAB PO SCH (09:00)
[2021-04-02] MEDS ORDERED: INFLUENZA VACCINE (for 6+ mo) 0.5 ML DOSE IMVAC ONE (09:00)
[2021-04-02] MEDS ORDERED: GABAPENTIN 400 MG CAP PO SCH (09:00)
[2021-04-02] MEDS ORDERED: ASPIRIN EC 81 MG TAB PO SCH (09:00)
[2021-04-02] MEDS ORDERED: PNEUMOCOCCAL VACCINE 0.5 ML IMVAC ONE (09:00)
[2021-04-02] MEDS ORDERED: MORPHINE 2 MG/ML SYR ONE (09:44)
[2021-04-02 11:47] VITALS: O2SAT 95
[2021-04-02] MEDS ORDERED: ATORVASTATIN 40 MG TAB PO SCH (21:00)
--- NOTE | 2021-04-02 22:49 | RAD REPORT ---
CLINICAL HISTORY: 75-year-old female with headache. COMPARISON: None. TECHNIQUE: CT brain without contrast. This exam was performed according to our departmental dose opt imization program which includes use of automated exposure control, adjustment of the mA and/or kV ac cording to patient size and/or use of iterative reconstruction technique. FINDINGS: Multifocal regions of patchy hypoattenuation are present in a subcortical and periventricu lar deep white matter distribution, nonspecific; however, most likely represent small vessel ischemic disease, age indeterminate. The ventricles, sulci, and cisterns are symmetric and unremarkable. The gil-white matter different iation is preserved. Partially empty sella otherwise the midline structures are within normal limits. There is no mass effect, midline shift, intra- or extra-axial fluid collection/acute hemorrhage. T he osseous structures are unremarkable. The paranasal sinuses reveal complete opacification of the RIGHT incompletely visualized maxillary si nus with sclerosis and thickening of the sinus wall, opacification of the adjacent anterior RIGHT eth moidal air cells otherwise the remaining paranasal sinuses and RIGHT side mastoid air cells are clear . The LEFT side mastoid air cells reveal opacification, finding which can be seen with sequela of i nfectious and inflammatory processes, additionally, there is partial opacification of the LEFT middle ear cavity. IMPRESSION: 1. No acute intracranial abnormalities. Nonspecific white matter change most likely sm all vessel ischemic disease, age indeterminate. 2. CT is insensitive for early evaluation of acute stroke. If there is clinical concern for acute ischemia, an MRI may be considered. 3. Chronic RIGHT maxillary sinus disease. Electronically signed by: Juju Noble MD 04/01/2021 10:24 PM TOUR ACTOR Due to temporary technical issues with the PACS/Fluency reporting system, reports are being signed by the in house radiologists without review as a courtesy to insure prompt reporting. The interpreting radiologist is fully responsible for the content of the report.
--- NOTE | 2021-04-03 01:25 | P.DS ---
Discharge Date: 04/02/21 Primary Care Provider: Alejandro Disposition: ROUTINE DISCHARGE Discharge Condition: GOOD Reason for Admission: chest pain Brief History of Present Illness: Ms. Travis is a 75 yo F with HTN and COPD who presents with an episode of 10/10 left sided chest pain beginning at rest and lasting for hours. She says she felt like someone was walking on her chest. She also reports headache. She says she was recently in a cardiac hospital in [place] for blood pressure management and was told to follow up wither her face cleaner for a stress test. She became tearful during conversation, and says she has been feeling sad lately. She endorses suicidal ideation. She says she has never previously attempted, but today she wanted to take all of her pills. She slept for most of the day. She says she does not think her Lexapro is at the correct dose. She says she was in an inpatient psychiatry unit in the 80s when she was going through a divorce. She currently lives with her granddaughter, but says she is moving out. She mentions that she wants to talk to APS and a public health social worker but will not elaborate further. Hospital Course: Patient's high sensitivity troponin was negative. Patient's pain is most likely musculoskeletal. At this time patient is stable for discharge home. Vital Signs/Physical Exam: Temp Pulse Resp BP Pulse Ox 56 18 100/48 L 97 04/02/21 04:00 04/02/21 08:33 04/02/21 04:00 04/02/21 08:33 General: Alert, In no apparent distress, Oriented x3 Respiratory: Clear to auscultation bilaterally, Normal air movement Cardiovascular: Regular rate/rhythm, Normal S1 S2 Laboratory Data at Discharge: WBC 6.60 K/uL (4.3-10.9) 04/02/21 03:09 Hgb 11.9 g/dL (12.0-15.0) L 04/02/21 03:09 Hct 35.7 % (36.0-45.0) L 04/02/21 03:09 Plt Count 153 K/uL (152-406) 04/02/21 03:09 PT Cancelled 04/01/21 20:48 INR Cancelled 04/01/21 20:48 Sodium 143 mmol/L (136-145) 04/02/21 03:09 Potassium 3.4 mmol/L (3.5-5.1) L 04/02/21 03:09 BUN 16 mg/dL (7-18) 04/02/21 03:09 Creatinine 0.76 mg/dL (0.55-1.3) 04/02/21 03:09 Glucose 86 mg/dL (74-106) 04/02/21 03:09 Phosphorus 3.4 mg/dL (2.5-4.9) 04/02/21 03:09 Magnesium 2.1 mg/dL (1.8-2.4) 04/02/21 03:09 Total Bilirubin 0.4 mg/dL (0.2-1.0) 04/02/21 03:09 AST 12 U/L (15-37) L 04/02/21 03:09 ALT 14 U/L (12-78) 04/02/21 03:09 Alkaline Phosphatase 93 U/L (45-117) 04/02/21 03:09 Triglycerides 107 mg/dL (<150) 04/02/21 03:09 Cholesterol 163 mg/dL (<200) 04/02/21 03:09 HDL Cholesterol 42 mg/dL (40-60) 04/02/21 03:09 Cholesterol/HDL Ratio 3.88 04/02/21 03:09 Home Medications: Escitalopram [Lexapro*] 20 mg PO DAILY 07/17/20 Gabapentin 600 mg PO BID 07/17/20 Ensure Enlive 237 ml PO BID #60 can 07/25/20 Melatonin 10 mg PO BEDTIME PRN PRN #30 tablet 07/25/20 Pantoprazole [Protonix Tab*] 40 mg PO BIDAC #60 tab 07/25/20 Rivaroxaban [Xarelto*] 10 mg PO DAILY #14 tablet 07/25/20 Atorvastatin Calcium [Lipitor] 40 mg PO BEDTIME #30 tab 04/02/21 Hydrocodone 5/APAP 325 [[place] 5/325*] 1 tab PO Q6HP PRN #20 tab 04/02/21 Metoprolol Tartrate [Lopressor*] 12.5 mg PO BID 6AM 6PM #60 tab 04/02/21 Ondansetron HCl 4 mg PO Q6HP PRN #30 tablet 04/02/21 predniSONE [Prednisone] 20 mg PO BID #10 tablet 04/02/21 New Medications: Atorvastatin Calcium [Lipitor] 40 mg PO BEDTIME #30 tab Metoprolol Tartrate [Lopressor*] 12.5 mg PO BID 6AM 6PM #60 tab Hydrocodone 5/APAP 325 [[place] 5/325*] 1 tab PO Q6HP PRN #20 tab PRN Reason: Pain Scale 5-7 (Moderate) Ondansetron HCl 4 mg PO Q6HP PRN #30 tablet PRN Reason: nausea and vomiting predniSONE [Prednisone] 20 mg PO BID #10 tablet Physician Discharge Instructions: OK TO DC IV AND DC HOME FOLLOW-UP WITH PRIMARY CARE PROVIDER IN 1-2 WEEKS FOLLOW-UP WITH CARDIOLOGY IN 1-2 WEEKS RETURN TO THE ER IF symptoms worsen CALL or TEXT DR. LOPEZ AT [phone] IF ANY QUESTIONS REGARDING HOSPITAL STAY. PLEASE CALL THE FLOOR AT [phone] IF ANY MEDICATION OR NURSING QUESTIONS. Diet: AHA Activity: Fall precautions Followup: NONE,NONE [Primary Care Provider] - Time spent managing pt's care (in minutes): 35
== END 2021-04-02 11:37 | disposition home or self-care (01) ==
LOC: ER 17:15 → ERHOLD 23:59
PROVIDERS: ADMIT Hospitalist; ATTEND Hospitalist
DX: R07.9 Chest pain, unspecified (principal); I10 Essential (primary) hypertension; J44.9 Chronic obstructive pulmonary disease, unspecified; F32.2 Major depressive disorder, single episode, severe without psychotic features; F41.9 Anxiety disorder, unspecified; R51.9 Headache, unspecified; G62.9 Polyneuropathy, unspecified; F17.200 Nicotine dependence, unspecified, uncomplicated; Z79.01 Long term (current) use of anticoagulants; Z88.6 Allergy status to analgesic agent; Z90.49 Acquired absence of other specified parts of digestive tract; Z90.710 Acquired absence of both cervix and uterus; Z20.822 Contact with and (suspected) exposure to COVID-19; Z82.49 Family history of ischemic heart disease and other diseases of the circulatory system
CPT/HCPCS: 93005; 85025 ×2; 80048; 36415 ×2; 83735; 84100; 85610; 80061; 84443; 84484 ×3; 84439; 80053; 70450; 71045; 96375; 96374; 99282; U0003; J2270; J2405; G0378 ×2